=== PATIENT | female | born 1930 | race Caucasian/White ===

== ENCOUNTER 2017-09-23 13:12 | Inpatient (IN) | payer MEDICARE, OTHER ==
[~2017-09-23] VITALS: Ht 165.1 cm; Wt 44.5 kg
[~2017-09-23 13:12] MED LIST: ASPIRIN325 PO; CARDIZEM CD120 MG PO; DIGOXIN125 MCG PO; ELIQUIS2.5 MG PO; LEVOTHYROXIN0.088 MG PO
[2017-09-23 13:23] VITALS: BP 148/64
[2017-09-23 13:44] LABS: ABSOLUTE LYMPHOCYTES 1.3 thou/uL (0.8-5.3); ABSOLUTE MONOCYTES 0.4 thou/uL (0.0-1.2); ABSOLUTE NEUTROPHILS 3.7 thou/uL (1.6-8.1); BASOPHILS 0.7 %; EOSINOPHILS 0.8 %; HEMATOCRIT 29.5 % (37.0-47.0); HEMOGLOBIN 9.4 gm/dL (12.0-15.0); LYMPHOCYTES 24.4 %; MCH 24.1 pg (26.0-34.0); MCHC 31.9 g/dL (28.0-37.0); MCV 75.6 fL (80.0-100.0); MONOCYTES 7.5 %; MPV 7.8 fl. (7.2-11.1); NUCLEATED RBCS 0 /100WBC; PLATELET COUNT* 291 thou/uL (150-400); POLYS 66.6 %; RBC 3.91 mil/uL (4.20-5.00); RDW-CV 16.2 % (10.5-14.5); WBC 5.5 thou/uL (4.0-11.0)
[2017-09-23 13:58] LABS: ANION GAP 7 mmol/L (7-16); BUN 19 mg/dL (7-18); CALCIUM 9.7 mg/dL (8.5-10.1); CHLORIDE 101 mmol/L (98-107); CO2 29 mmol/L (21-32); CREATININE 0.7 mg/dL (0.6-1.3); GLUCOSE 100 mg/dL (70-99); SODIUM 137 mmol/L (136-145)
[2017-09-23 13:59] LABS: APTT 27.5 Seconds (25.0-31.3); PROTIME 10.1 Seconds (9.20-11.50)
[2017-09-23 14:27] LABS: ALBUMIN 3.9 g/dL (3.4-5.0); ALKALINE PHOSPHATASE 53 U/L (46-116); LIPASE 186 U/L (73-393); MAGNESIUM 1.7 mg/dL (1.8-2.4); NT-PRO BRAIN NAT PEPTIDE 231 pg/mL (<300); SGOT 15 U/L (15-37); SGPT 18 U/L (30-65); TOTAL BILIRUBIN 0.4 mg/dL (<0.1-1.0); TOTAL PROTEIN 6.8 g/dL (6.4-8.2); TROPONIN-I LEVEL <0.06 ng/mL (<0.06)
--- NOTE | 2017-09-23 15:00 | EKG ---
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1930 Requested By: Jose Manuel Navas Order Number: [id number] MD: Javier Bynum Measurements Intervals [place] Rate: 62 P: 269 NM: 208 QRS: -20 QRSD: 122 T: 240 QT: 404 QTc: 411 Interpretive Statements Sinus or ectopic atrial rhythm Left bundle branch block Compared to ECG 12/21/2014 07:04:21 Ectopic atrial rhythm now present Atrial fibrillation no longer present Left-axis deviation no longer present Electronically Signed On 09-23-2017 15:00:30 CDT by Javier Bynum [email or web address] <ELECTRONICALLY SIGNED> By: Javier Bynum MD, FACC 09/23/17 1500 1319 1319 Javier Bynum MD, FAC /EPI
[2017-09-23 15:22] VITALS: BP 152/55
[2017-09-23 15:30] VITALS: BP 161/71
[2017-09-23] MEDS ORDERED: METFORMIN HCL500 MG PO (15:58)
[2017-09-23] MEDS ORDERED: AMARYL2 MG PO (15:59)
--- NOTE | 2017-09-23 16:21 | NUR ---
RECIEVED REPORT FROM ANNA IN ED AND ASSUMED CARE OF PT @ 1530.PT IS A/O X4,VSS,TRACING SR ON MONITOR WITH OCCASIONAL V PACED.LUNG SOUNDS ARE CLEAR ON ROOM AIR.LAST BM WAS TODAY.IV RIGHT AC PATENT AND SALINE LOCKED.PT IS CALM AND COOPERATIVE WITH C/O HEADACHE PAIN 12/19.CALL PUT OUT TO DOCTOR FOR PAIN MEDICATIONS.PT IS UP WITH ONE ASSIST AND WALKER TO BATHROOM. PT LEFT RESTING IN BED WITH CALL LIGHT IN PLACE. WILL CONTINUE TO MONITOR FOR DURATION OF SHIFT.PT WAS TO GO TO CTA TEST BUT HAS ALLERGY TO CONTRAST.CALL PUT OUT TO DOCTOR TO SEE IF THEY WANT TO CANCEL TEST AND DO VQ SCAN INSTEAD. DOCTOR CALLED BACK AND IS GOING TO GIVE SOMETHING FOR HEADACHE AND ORDER BENADRYL AND SOLU-MEDROL FOR CONTRAST ALLERGY THEN CONTINUE CTA.
[2017-09-23 20:00] VITALS: BP 150/66
[2017-09-24] VITALS: BP 137/61
[2017-09-24 01:41] LABS: CALCIUM 9.8 mg/dL (8.5-10.1)
[2017-09-24 01:45] LABS: POTASSIUM 5.4 mmol/L (3.5-5.1)
--- NOTE | 2017-09-24 01:50 | NUR ---
ASSUMED PT CARE AT 19:15 PT IS ALERT AWAKE ORIENTED X 4. FORGETFUL AT TIMES. VITAL SIGNS WITHIN NORMAL LIMIT. SINUS RYHTM ON THE MONITOR. NO COMPLAINT OF PAIN AT THIS TIME. ASSESSMENT PERFORMED. REFER TO CHARTING. ACCUCHECK RESULT IS IN THE 300S. PT DOES NOT TAKE INSULIN. ONLY TAKES METFORMIN WHICH WAS NOT ADMINISTERED TODAY IT IS SCHEDULED. NEXT DOSE OF METFORMIN IS DUE AT 0800 INTHE AM. DECIDED TO RE EVALUATE BLODD SUGAR LEVEL AT MIDNIGHT. BLOOD SUGAR RECHECKED AT MIDNIGHT RESLUT IS 517. POTASSIUM LEVEL IS 5.4. DR ACCOUNTS PAYABLE ACCOUNTANT CONTACTED, WILL WAIT FOR CALL BACK AND PROCEES ORDERED. PT REMAINS ASYMPTOMATIC DURING THE SHIFT. IS LAYING IN BED. LIGHT DIM, ROOM QUIET, WILL CONTINUE TO MONITOR.
--- NOTE | 2017-09-24 02:53 | NUR ---
BLOOD SUGARLEVEL OF 517. RESULT COMMNUICATED TO COMPUTER PROJECT MANAGER. NEW ORDWER RECEIVED. SEE MAR. INSULIN 23 UNITS WAS ADMINSTERED ONETIME. PT IS PLACED ON A HIGH DOSE SLIDING SCALE FOR LISPRO. REFER TO MAR. POTASSIUM LEVEL OF 5.4. KAYEXYLATE ORDER RECEIVED. WILL PROCEED ORDERED.
[2017-09-24 04:00] VITALS: BP 130/69
[2017-09-24 07:08] LABS: CALCIUM 9.2 mg/dL (8.5-10.1); CREATININE 0.9 mg/dL (0.6-1.3); POTASSIUM 3.7 mmol/L (3.5-5.1)
[2017-09-24 07:13] LABS: ALBUMIN 3.5 g/dL (3.4-5.0); CHOLESTEROL 178 mg/dL (<200); HDL CHOLESTEROL 74 mg/dL (>40); LDL CHOLESTEROL 101 mg/dL (<100); MAGNESIUM 1.7 mg/dL (1.8-2.4); TC:HDL 2.4 Ratio (Not establshd); TOTAL BILIRUBIN 0.3 mg/dL (<0.1-1.0); TOTAL PROTEIN 6.5 g/dL (6.4-8.2); TRIGLYCERIDE 18 mg/dL (<150); VLDL 4 mg/dL (<40)
[2017-09-24 07:15] LABS: SERUM ASSESSMENT Clear
[2017-09-24 07:55] VITALS: BP 145/73
--- NOTE | 2017-09-24 08:22 | NUR ---
RECIEVED REPORT FROM AMAURY AND ASSUMED CARE OF PT @ 9679.PT IS A/O X4,VSS,TRACING SR ON MONITOR.LUNG SOUNDS ARE CLEAR DIMINSHED.LAST BM WAS YESTERDAY.IV RIGHT AC PATENT WITH NS RUNNING.PT IS CALM AND COOPERATIVE WITH C/O HEADACHE PAIN 5/10.PT IS UP WITH ONE ASSIST AND WALKER TO BATHROOM.PT LEFT SITTING IN CHAIR WITH CALL LIGHT AND FALL PRECAUTIONS IN PLACE.WILL CONTINUE TO MONITOR. PT WILL ALLOWED TO HAVE LIGHT BREAKFAST THEN WILL BE NPO FOR STRESS TEST LATER TODAY.WILL CONTINUE TO MONITOR.
--- NOTE | 2017-09-24 11:38 | EKG ---
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 : 1930 Requested By: Jose Manuel Navas Order Number: [id number] Yarelis MD: Melvin Carrillo Measurements Intervals [place] Rate: 82 P: 99 HI: 310 QRS: -39 QRSD: 128 T: 161 QT: 354 QTc: 414 Interpretive Statements Sinus rhythm Prolonged HI interval Left bundle branch block Compared to ECG 09/23/2017 13:19:22 no change Electronically Signed On 09-24-2017 11:37:55 CDT by Melvin Carrillo [email or web address] <ELECTRONICALLY SIGNED> By: Melvin Carrillo MD, [facility] 09/24/17 1137 1 1 Melvin Carrillo MD, [facility] /EPI
[2017-09-24 11:47] VITALS: BP 149/75
--- NOTE | 2017-09-24 12:37 | NUR ---
MET WITH PT TO DISCUSS HOME SITUATION/DC PLANNING. PT LIVES IN [place] AT THE [facility]. SHE USES ROLLER WALKER, GOES TO [employer]ALS IN DINING ROOM AND STATES IS INDEPENDENT WITH ADLS. SHE HAS SON WHO LIVES CLOSEBY WHO IS SUPPORTIVE AND ASSISTS NEEDED AND IS DPOA/RUSLAN. PT HAS HAD HH IT THE PAST BUT DOESN'T FEEL SHE NEEDS IT AT THIS TIME. SHE PLANS TO RETURN HOME AT [place]. [facility] HAS APPT WITH YU WOLFE, UNSURE OF HIS NAME. WILL FOLLOW
--- NOTE | 2017-09-24 13:31 | NUR ---
RECEIVED CONSULT FOR POSSIBLE REHAB ADMISSION. CONSULT HAS BEEN ACKNOWLEDGED BY GRAIN BROKER AND MARKET OPERATOR AND DR. EMERY. PATIENT WAS ADMITTED WITH CHEST PAIN AND FRONTAL GREEN. CARDIOLOGY AND NEUROLOGY WORK UPS AND TESTING ARE PENDING, PT/OT/ST EVALUATIONS ARE PENDING. WILL FOLLOW ALONG WITH PATIENT TO SEE HOW SHE PROGRESSES AND DX FROM WORK UPS TO DETERMINE IF PATIENT QUALIFIES FOR ACUTE REHAB. THANK YOU FOR THIS REFERRAL.
--- NOTE | 2017-09-24 14:53 | NUR ---
Nutrition: Pt seen for low BMI. Wt is recorded as 106#. Pt appears a little heavier than that - PLEASE REWEIGH FOR ACCURACY. Pt was busy with cardiac at time of visit, sitting up in chair, so did not reweigh at this time. H/o afib, pacemaker, appy. RX: insulin, glimeperide, aspirin. BG 192-208, albumin 3.5. She is NPO for testing. She is getting rehab on tele unit. Awaiting test results and diet advancement. Underweight R/T etiology unknown AEB BMI <18.5. Please reweigh pt. Please advance diet once clinically able. If meal intake is <50%, offer Ensure supplement. RD will follow up for diet advancement, po intake, need for supplement, weight, 09/26/17.
[2017-09-24 15:11] LABS: GLYCOHEMOGLOBIN (HGB A1C) 7.6 % (4.8-5.6)
[2017-09-24 15:53] VITALS: BP 129/65
--- NOTE | 2017-09-24 17:52 | NUR ---
VSS,CARDIAC MONITORING IN PLACE WITH NO CHANGES THIS SHIFT.PT REMAINS ON RA.PT PROGRESSING TOWARDS GOALS.WALKED IN HALLWAY WITH [employer]. WORKED WITH PT/OT/ST.NIH SCREEN COMPLETED.STATIN STARTED FOR ELEVATED LDL.PT HAS DENIED PAIN THROUGHOUT SHIFT.PT INFORMED OF PLAN AND COMMUNICATES UNDERSTANDING.PROBABLE DISCHARGE TOMORROW.HOURLY ROUNDING COMPLETED FOR PT SAFETY.CALL LIGHT AND FALL PRECAUTIONS IN PLACE.WILL CONTINUE TO MONITOR FOR DURATION OF SHIFT.
[2017-09-24 20:00] VITALS: BP 113/54
--- NOTE | 2017-09-24 20:10 | CARDNUC ---
[place] [address] CARDIAC NUCLEAR IMAGING REPORT Name: MATT NICHOLE Room: [address] IN [facility]#: [id number] Admission: 09/23/17 Attend Phys: Enzo Hart Discharge: Date of : 30 Date of Service: 09/24/172009 Report #: [id number] THIS REPORT FOR: //name// APPROVED REPORT Study performed: 09/23/2017 16:02:00 Exam: Nuclear Stress Test Indication: chest pain, dyspnea Patient Location: In-Patient Room #: 232 Stress Tech: Elizabeth He Stress Nurse: Tasha Balbuena RN NM Tech:SHAHEDE Casarez Ht: 5 ft 5 in Wt: 106 lbs BSA: 1.51 m2 BMI: 17.63 Medical History Medical History: a fib, pacemaker, hypertension, diabetes Medications: asa, diltiazem, digoxin Allergies: meperidine, iodine Cardiac Risk Factors: age, hypertension, diabetes Previous Cardiac Procedures: pacemaker Exercise History: Sedentary Stress Test Details Stress Test: Pharmacologic stress testing performed using 0.4 mg of regadenoson per 5 mL given IV over 10 seconds. Reason for pharmacologic stress test: physical limitation. Reversal agent Aminophyline 50 mg, given intravenously for tachycardia, st depression. HR Resting HR: 86 bpm Max Heart Rate (APMHR): 134 bpm Max HR Achieved: 112 bpm Target HR (85% APMHR): 113 bpm % of APMHR: 83 Recovery HR: 96 bpm BP Resting BP: 166/78 mmHg Max BP: 157/67 mmHg ECG Resting ECG: Sinus Rhythm, [place] [address] CARDIAC NUCLEAR IMAGING REPORT Name: MATT NICHOLE Room: [address]#: [id number] Admission: 09/23/17 Attend Phys: Enzo Hart Discharge: Date of : 30 Date of Service: 09/24/172009 Report #: [id number] Stress ECG: Sinus Rhythm, LBBB ST Change: None Arrhythmia: None Recovery ECG: Sinus Rhythm, LBBB Recovery ST Change: None Recovery Arrhythmia: None Clinical Reason for Termination: Completed protocol Exercise duration: 0 min sec Exercise capacity: 1 METs Functional Aerobic Impairment 83% The patient had no significant clinical symptoms with Lexiscan infusion. Nurse Comments aminophylline given for persistant tachycardia and s t depression Stress ECG Conclusion The baseline 12-lead elect cardiac gram showed sinus rhythm with left bundle-branch block. EKGs obtained during and post Lexiscan infusion show sinus rhythm with left bundle-branch block. There are no stress-induced arrhythmias. NM EXAM: Myocardial Perfusion REST/STRESS Imaging Protocol: Rest Tc-99m/Stress Tc-99m 1 day Resting Data Rest SPECT myocardial perfusion imaging was performed in supine position 30 minutes following the intravenous injection of 10.7 mCi of Tc-99m Sestamibi. Time of rest injection: 829 Date: 09/24/2017 The images were gated to evaluate regional wall motion and calculate left ventricular ejection fraction. Administration Route: IV Pharmacologic Stress Pharmacologic stress test was performed by injecting Regadenoson 0.4 mg IV push followed by the intravenous injection of 31.7 mCi of Tc-99m Sestamibi. Time of stress injection: 954 Time of stress imagin Administration Route: IV Gated Stress SPECT was performed 40 minutes [place] [address] CARDIAC NUCLEAR IMAGING REPORT Name: MATT NICHOLE Room: [address] IN [facility]#: [id number] Admission: 09/23/17 Attend Phys: Enzo Hart Discharge: Date of : 30 Date of Service: 09/24/172009 Report #: [id number] The images were gated to evaluate regional wall motion and calculate left ventricular ejection fraction. Stress only was performed in the Supine position. Study Quality Study: Good Artifact: No artifact Study Data At rest, the left ventricular ejection fraction was 79%.. Post stress, the left ventricular ejection was 80%.. TID = 1.04. Perfusion Myocardial perfusion images at rest and post Lexiscan stress show uniform uptake of the radioisotope throughout the myocardium. There are no defects to suggest infarct or ischemia. Wall Motion Normal left ventricular wall motion. Nuclear Conclusion ECG Findings: non-diagnostic Clinical Findings: negative for ischemia Nuclear Findings: negative for ischemia Exercise Capacity: not assessed Left Ventricular Function: normal Risk Study: low Myocardial perfusion images show no defect to suggest infarct or ischemia. Left ventricular systolic function appears normal on gated studies. This is a low risk study. <Conclusion> The baseline 12-lead elect cardiac gram showed sinus rhythm with left bundle-branch block. EKGs obtained during and post Lexiscan infusion show sinus rhythm with left bundle-branch block. There are no stress-induced arrhythmias. <ELECTRONICALLY SIGNED> By: Javier Bynum MD, FACC 09/24/172009 09 09 Javier Bynum MD, FACC /INF
[2017-09-25 00:17] VITALS: BP 130/62
[2017-09-25 04:00] VITALS: BP 153/105
--- NOTE | 2017-09-25 05:20 | NUR ---
ASSUMED PT CARE AT 19:15 REPORT RECEIVED FROM NURSE. VITAL SIGNS ARE WITHIN NORMAL LIMIT. IV LINE PATENT. IV FLUID INFUSINS AT 20CC/HR. PT LINE WAS CHAGED AT AOURND 11PM. NOW HAS A LEFT FOREARM IV LINE. VITALS SIGNS WITHIN NORMAL LIMIT. REASSESSEMT PREFORMED . REFER TO CHARTING. ACCUCHECK PERFOREMED. BLOOD GLUCOSE TREATED WITH SOME INSULIN OREDERD. SNACH PROVIDED. PT HAS POOR SLEEPING PATTERN AND REFUSED TO SLEEP WITH LIGHT . WILL CONTINUE TOP MONITOR
[2017-09-25 10:00] VITALS: BP 148/52
[2017-09-25] MEDS ORDERED: LIPITOR10 MG PO (10:25)
--- NOTE | 2017-09-25 10:45 | NUR ---
Nutrition: follow up note. Pt is discharging home today. Eating well on Heart Healthy diet, per RN. Very thin in appearance. Wt recorded as 98# today. Would encourage oral supplement at home as well, and MVI.
[2017-09-25 10:58] VITALS: BP 148/52
--- NOTE | 2017-09-25 11:08 | NUR ---
ASSUMED PT CARE AT 0700 PT IS ALERT AND ORIETNED X 4 PT IS FORGETFUL, PT IS UP WITH SBA PT IS A FALL RISK BED AND CHAIR ALARMS ARE ON, PT DOES NOT FOLLOW INSTRUCTIONS WELL, PT DOES NOT WANT SWALLOW STUDY DONE PHYSICIAN IS AWARE, PT IS AFIB, PHYSICIAN CLEARED PT FOR DISCHARGE, WILL CONTINUE TO MONITOR
--- NOTE | 2017-09-25 11:10 | NUR ---
PT HAS ORDERS FOR DC. MET WITH PT, DENIES NEEDS. HAPPY TO BE GOING HOME
--- NOTE | 2017-09-29 15:51 | 2DMMODE ---
[place] [address] 2 D/M-MODE ECHOCARDIOGRAM Name: MATT NICHOLE Room: [address] IN [facility]#: [id number] Admission: 09/23/17 Attend Phys: Enzo Hart Discharge: 09/25/17 Date of : 30 Date of Service: 09/25/17 1404 Report #: [id number] THIS REPORT FOR: //name// APPROVED REPORT Study performed: 09/25/2017 09:46:50 EXAM: Comprehensive 2D, Doppler, and color-flow Echocardiogram Patient Location: In-Patient Room #: [facility] Status: routine BSA: 1.51 HR: 69 bpm BP: 148/52 mmHg Rhythm: NSR Other Information Study Quality: Good Indications CVA/TIA Chest Pain Echo Enhancing Agent Indication: Rule out Shunt Agent(s) / Amount(s) Used: Agitated Saline 10 cc 2D Dimensions LVEF(%): 75.20 (>50%) IVSd: 13.02 (7-11mm) LVOT Diam: 18.04 (18-24mm) LVDd: 35.71 mm PWd: 10.27 (7-11mm) Ascending Ao: 30.70 (22-36mm) LVDs: 20.31 (25-40mm) Aortic Root: 28.06 mm Monge's LVEF: 75.20 % Volumes Left Atrial Volume (Systole) LA ESV Index: 30.30 mL/m2 Aortic Valve AoV Peak Willem.: 1.38 m/s AO Peak Gr.: 7.63 mmHg LVOT Max P.81 mmHg AO Mean Gr.: 4.15 mmHg LVOT Mean P.98 mmHg LVOT Max V: 0.98 m/[place] [address] 2 D/M-MODE ECHOCARDIOGRAM Name: MATT NICHOLE Room: [address]#: [id number] Admission: 09/23/17 Attend Phys: Enzo Hart Discharge: 09/25/17 Date of : 30 Date of Service: 09/25/17 1404 Report #: [id number] AO V2 VTI: 32.43 cm LVOT Mean V: 0.65 m/s LUZ MARINA (VTI): 1.70 cm2 LVOT V1 VTI: 21.51 cm Mitral Valve E/A Ratio: 1.21 MV Decel. Time: 250.70 ms MV E Max Willem.: 0.88 m/s MV PHT: 72.70 ms MVA (PHT): 3.03 cm2 TDI E/Lateral E': 11.00 E/Medial E': 14.67 Medial E' Willem.: 0.06 m/s Lateral E' Willem.: 0.08 m/s Pulmonary Valve PV Peak Willem.: 1.01 m/s PV Peak Gr.: 4.12 mmHg Tricuspid Valve TR Peak Gr.: 20.97 mmHg RVSP: 25.00 mmHg Left Ventricle The left ventricle is normal size. There is normal LV segmental wall motion. There is normal left ventricular wall thickness. Left ventricular systolic function is normal. The left ventricular ejection fraction is within the normal range. LVEF is 60-65%. The left ventricular diastolic function is normal. Right Ventricle The right ventricle is normal size. The right ventricular systolic function is normal. Atria Left atrium is mildly dilated. small right to left shunt noted suggesting a smal PFO The right atrium size is normal. Aortic Valve Mild aortic valve sclerosis. Trace aortic regurgitation. There is no aortic valvular stenosis. Mitral Valve The mitral valve is normal in structure. Trace mitral regurgitation. No evidence of mitral valve stenosis. Tricuspid Valve The tricuspid valve is normal in structure[place] [address] 2 D/M-MODE ECHOCARDIOGRAM Name: MATT NICHOLE Room: [address] IN M.R.#: [id number] Admission: 09/23/17 Attend Phys: Enzo Hart Discharge: 09/25/17 Date of : 30 Date of Service: 09/25/17 1404 Report #: [id number] regurgitation. The RVSP is ___25____ mmHg. Pulmonic Valve The pulmonary valve is normal in structure. There is no pulmonic valvular regurgitation. Great Vessels The aortic root is normal in size. IVC is normal in size and collapses with >50% inspiration Pericardium There is no pericardial effusion. <Conclusion> LVEF is 60-65%. small right to left shunt noted suggesting a smal PFO Mild aortic valve sclerosis. Left atrium is mildly dilated. <ELECTRONICALLY SIGNED> By: Melvin Carrillo MD, FACC 09/25/17 1404 1404 1404 Melvin Carrillo MD, FACC /INF
--- NOTE | 2017-09-30 13:48 | CON ---
[address] [address] CONSULTATION Name: MATT NICHOLE Room: [address] IN .R.#: [id number] Admission: 09/23/17 Attend Phys: Taylor Stewart Discharge: 09/25/17 Date of : 30 Report #: [id number] THIS REPORT FOR: //name// CC: Melvin Carrillo [facility] physician/PCP Enzo Hart DATE OF SERVICE: 09/23/2017 HISTORY OF PRESENT ILLNESS: This is an 86-year-old female patient who was admitted with chest pain. She also gave a history that she has headache. Headache is bifrontal. It started spontaneously. It started about 2 days ago. She had no trauma associated with it. It is not clear if she took much medication with it or not. She has a pacemaker. She has atrial fibrillation, but declined anticoagulation. She does not have any focal deficit. REVIEW OF SYSTEMS: Indicate that this patient had fractures in the past. She has fallen down multiple times. She has left hip problem. She does not pass out, but just fall down. She has cardiac problems. She had a CTA chest done, which shows the atherosclerotic thoracic aorta. Otherwise, she is not complaining of any new eye, ENT, respiratory, GI, , constitutional, dermatological, hematological, psychiatric, throat or allergic symptom associated with present symptomatology. She has all 14-point review of system, which was carried out and is summarized above. PAST MEDICAL HISTORY: Negative for stroke. FAMILY HISTORY: Negative for early age stroke. SOCIAL HISTORY: She does not smoke. PHYSICAL EXAMINATION: NEUROLOGIC: Indicates she is alert. She is responsive. Her speech, concentration, fund of knowledge and memory is at her baseline. Cranial nerve examination 2-12 looks unremarkable. She has symmetrical strength, sensation, reflexes and tone, but she is weak in the lower extremities. There is no meningeal sign. There is no carotid bruit. I could not look at the fundus. She has no cerebellar sign. She is moderately built individual who does not have any dysmorphic features of eyes, ears and face. Her vision and hearing looks adequate. EXTREMITIES: Pulses are somewhat difficult to feel. She has no edema, cyanosis or jaundice. HEART: Irregular, but she has a pacemaker. RESPIRATORY: No respiratory difficulty or rhonchi was noticed. VITAL SIGNS: Blood pressure is 161/71, respirations 16, pulse is 69, temperature is 97.9. [place] [address] CONSULTATION Name: MATT NICHOLE Sonu Room: [address]#: [id number] Admission: 09/23/17 Attend Phys: Taylor Stewart Discharge: 09/25/17 Date of : 30 Report #: [id number] LABORATORY DATA: She is anemic with a hemoglobin of 9.4. Her GFR is normal. She did have a CT scan of the head, which appear unremarkable. IMPRESSION: New onset of headache. I will check a sed rate to make sure she does not have temporal arteritis. Stroke is difficult to exclude because we cannot do an MRI. She has no focality and she has declined anticoagulation in the past. I will check a carotid Doppler in this patient. I will be inclined not to do a CT with contrast because she just got contrast. We will reevaluate the patient after the above workup is available. I ordered a carotid Doppler and sed rate and we will look at that and see what else we need to do about this patient. I do not think if there is any indication to do the spinal tap, but we will keep that in mind. <ELECTRONICALLY SIGNED> By: Miguelangel Porter MD 09/30/17 [phone] Porter MD /nt
== END 2017-09-25 12:54 | disposition home or self-care (01) | DRG 103 ==
LOC: M.ERS 13:12 → M.TBA-ER 14:30 → M.2W 14:30
PROVIDERS: Family Medicine; ADMIT Internal Medicine
DX: G43.909 Migraine, unspecified, not intractable, without status migrainosus (principal); K21.9 Gastro-esophageal reflux disease without esophagitis; E11.65 Type 2 diabetes mellitus with hyperglycemia; Z96.641 Presence of right artificial hip joint; I48.2 Chronic atrial fibrillation; I10 Essential (primary) hypertension; E78.5 Hyperlipidemia, unspecified; R07.89 Other chest pain; I65.23 Occlusion and stenosis of bilateral carotid arteries; Z90.49 Acquired absence of other specified parts of digestive tract; Z90.710 Acquired absence of both cervix and uterus; Z95.0 Presence of cardiac pacemaker; Z87.81 Personal history of (healed) traumatic fracture; Z88.8 Allergy status to other drugs, medicaments and biological substances; Z87.891 Personal history of nicotine dependence

== ENCOUNTER 2019-01-01 08:11 | Inpatient (IN) | payer MEDICARE, OTHER ==
[~2019-01-01] VITALS: Ht 165.1 cm; Wt 50.7 kg
[~2019-01-01 08:11] MED LIST changes: +AMARYL2 MG PO; +LIPITOR10 MG PO; +METFORMIN HCL500 MG PO
[2019-01-01 08:17] VITALS: BP 167/90
[2019-01-01] MEDS ORDERED: KLOR-CON 1010 MEQ PO (08:53)
[2019-01-01] MEDS ORDERED: LASIX 20 MG TAB20 MG PO (08:53)
[2019-01-01 08:57] LABS: ABSOLUTE EOSINOPHILS 0.1 thou/uL (0.0-0.7); ABSOLUTE LYMPHOCYTES 1.1 thou/uL (0.8-5.3); ABSOLUTE MONOCYTES 0.4 thou/uL (0.0-1.2); ABSOLUTE NEUTROPHILS 3.7 thou/uL (1.6-8.1); BASOPHILS 0.9 %; EOSINOPHILS 1.3 %; HEMATOCRIT 24.1 % (37.0-47.0); HEMOGLOBIN 7.1 gm/dL (12.0-15.0); LYMPHOCYTES 21.3 %; MCH 18.5 pg (26.0-34.0); MCHC 29.4 g/dL (28.0-37.0); MCV 63.1 fL (80.0-100.0); MONOCYTES 6.9 %; MPV 6.6 fl. (7.2-11.1); NUCLEATED RBCS 0 /100WBC; PLATELET COUNT* 355 thou/uL (150-400); POLYS 69.6 %; RBC 3.82 mil/uL (4.20-5.00); RDW-CV 19.8 % (10.5-14.5); WBC 5.4 thou/uL (4.0-11.0)
[2019-01-01 09:06] LABS: ANION GAP 9 mmol/L (7-16); BUN 21 mg/dL (7-18); CALCIUM 8.7 mg/dL (8.5-10.1); CHLORIDE 103 mmol/L (98-107); CO2 27 mmol/L (21-32); CREATININE 0.8 mg/dL (0.6-1.3); GLUCOSE 137 mg/dL (70-99); POTASSIUM 4.3 mmol/L (3.5-5.1); SODIUM 139 mmol/L (136-145)
[2019-01-01 09:07] LABS: PROTIME 10.7 Seconds (9.20-11.50)
[2019-01-01 09:22] LABS: ALBUMIN 3.6 g/dL (3.4-5.0); ALKALINE PHOSPHATASE 57 U/L (46-116); LIPASE 179 U/L (73-393); MAGNESIUM 1.4 mg/dL (1.8-2.4); NT-PRO BRAIN NAT PEPTIDE 969 pg/mL (<300); SGOT 15 U/L (15-37); SGPT 21 U/L (30-65); TOTAL BILIRUBIN 0.4 mg/dL (<0.1-1.0); TOTAL PROTEIN 6.6 g/dL (6.4-8.2); TROPONIN-I LEVEL <0.06 ng/mL (<0.06)
[2019-01-01 09:56] LABS: HYPOCHROMASIA 3+; MICROCYTES 3+
[2019-01-01 10:01] LABS: ANISOCYTOSIS 1+; TARGET CELLS 1+
[2019-01-01] MEDS ORDERED: METOPROLOL SUC100 MG PO (11:18)
--- NOTE | 2019-01-01 11:30 | NUR ---
PT UP TO ROOM VIA CART. PT REPORTS SOA. AFIB ON MONITOR. CALL LIGHT WITHIN REACH,ORIENTED TO UNIT. CAROLYN FLORES INFUSING
[2019-01-01 11:39] VITALS: BP 138/53
[2019-01-01 14:30] VITALS: BP 120/68; BP 123/70; BP 128/70; BP 138/74
[2019-01-01 15:40] VITALS: BP 130/50
--- NOTE | 2019-01-01 17:08 | NUR ---
PT TO ROOM THIS AFTERNOON. CARDIZEM GTT TITRATED OF THIS PM. BLOOD TRANSFUSION THIS AFTERNOON COMPLETE. PT TOLERATED WELL. PT TOLERATING PO WELL. UP WITH ASSIST TO BSC. AFIB RATE CONTROLLED
[2019-01-01 17:50] LABS: HEMATOCRIT 27.3 % (37.0-47.0); HEMOGLOBIN 8.2 gm/dL (12.0-15.0)
--- NOTE | 2019-01-01 18:45 | 2DMMODE ---
[place] [address] 2 D/M-MODE ECHOCARDIOGRAM Name: MATT NICHOLE Room: [address] IN [facility]#: [id number] Admission: 01/01/19 Attend Phys: Enzo Hart Discharge: Date of : 30 Date of Service: 01/01/19 1844 Report #: [id number] THIS REPORT FOR: //name// APPROVED REPORT Study performed: 01/01/2019 13:13:35 EXAM: Comprehensive 2D, Doppler, and color-flow Echocardiogram Patient Location: In-Patient Room #: [facility] Status: routine BSA: 1.56 HR: 62 bpm BP: 138/53 mmHg Rhythm: Atrial Fibrillation Other Information Study Quality: Good Indications Atrial Fibrillation 2D Dimensions IVSd: 10.20 (7-11mm) LVOT Diam: 19.41 (18-24mm) LVDd: 32.41 mm PWd: 8.72 (7-11mm) Ascending Ao: 34.21 (22-36mm) LVDs: 20.73 (25-40mm) Aortic Root: 31.22 mm Volumes Left Atrial Volume (Systole) LA ESV Index: 37.20 mL/m2 Aortic Valve AoV Peak Willem.: 1.49 m/s AO Peak Gr.: 8.91 mmHg LVOT Max P.74 mmHg AO Mean Gr.: 5.53 mmHg LVOT Mean P.60 mmHg LVOT Max V: 0.83 m/s AO V2 VTI: 28.76 cm LVOT Mean V: 0.61 m/s LUZ MARINA (VTI): 1.54 cm2 LVOT V1 VTI: 15.01 cm Mitral Valve MV Decel. Time: 154.56 ms MV PHT: 44.82 ms MVA (PHT): 4.91 [place] [address] 2 D/M-MODE ECHOCARDIOGRAM Name: MATT NICHOLE Room: [address] IN [facility]#: [id number] Admission: 01/01/19 Attend Phys: Enzo Hart Discharge: Date of : 30 Date of Service: 01/01/19 1844 Report #: [id number] TDI Medial E' Willem.: 0.08 m/s Lateral E' Willem.: 0.12 m/s Pulmonary Valve PV Peak Willem.: 1.11 m/s PV Peak Gr.: 4.95 mmHg Tricuspid Valve RAP Estimate: 5.00 mmHg TR Peak Gr.: 31.57 mmHg RVSP: 36.00 mmHg PA Pressure: 36.00 mmHg Left Ventricle The left ventricle is normal size. There is normal LV segmental wall motion. There is normal left ventricular wall thickness. Left ventricular systolic function is normal. The left ventricular ejection fraction is within the normal range. LVEF is 60-65%. This study is not technically sufficient to allow evaluation of the LV diastolic function due to atrial fibrillation. Right Ventricle Right ventricle is dilated. The right ventricular systolic function is normal. Pacemaker lead is present in the right ventricle. Atria Left atrium is mildly dilated. Right atrium is dilated. Aortic Valve Mild aortic valve sclerosis. No aortic regurgitation is present. Mild aortic stenosis. Mitral Valve The mitral valve is normal in structure. Trace mitral regurgitation. There is normal mitral valve excursion. Tricuspid Valve The tricuspid valve is normal in structure. Mild tricuspid regurgitation. Mild pulmonary hypertension. Pulmonic Valve The pulmonary valve is normal in structure. There is no pulmonic valvular regurgitation. Great Vessels The aortic root is normal in size. IVC [place] [address] 2 D/M-MODE ECHOCARDIOGRAM Name: MATT NICHOLE Room: [address] IN [facility]#: [id number] Admission: 01/01/19 Attend Phys: Enzo Hart Discharge: Date of : 30 Date of Service: 01/01/19 1844 Report #: [id number] collapses >50% with inspiration. Pericardium There is no pericardial effusion. Left pleural effusion. <Conclusion> Left ventricular systolic function is normal. The left ventricular ejection fraction is within the normal range. LVEF is 60-65%. This study is not technically sufficient to allow evaluation of the LV diastolic function due to atrial fibrillation. Right ventricle is dilated. Mild aortic valve sclerosis. Mild aortic stenosis. Trace mitral regurgitation. Mild tricuspid regurgitation. Mild pulmonary hypertension. Pacemaker lead is present in the right ventricle. Left pleural effusion. <ELECTRONICALLY SIGNED> By: Kristie Tyson MD, FACC 01/01/191843 43 43 Kristie Tyson MD, FACC /INF
--- NOTE | 2019-01-01 20:11 | EKG ---
[place] [address] ELECTROCARDIOGRAM REPORT Name: MATT NICHOLE Room: [address] ADM IN [facility]#: [id number] Admission: 01/01/19 Attend Phys: Taylor Stewart Discharge: Date of : 30 Report #: [id number] THIS REPORT FOR: //name// [facility] ED Test Date: 2019-01-01 Test Time: 08:14:41 Pat Name: MATT NICHOLE Department: Room: [facility] Gender: F Ride Assembly Supervisor: ENE : 1930 Requested By: John Gautam Order Number: [id number] MD: Nazario Tyson Measurements Intervals [place] Rate: 137 P: [place]: QRS: -39 QRSD: 119 T: 169 QT: 314 QTc: 474 Interpretive Statements Atrial fibrillation Nonspecific IVCD with LAD LVH with secondary repolarization abnormality Probable anterior infarct, age indeterminate Baseline wander in lead(s) V1 Compared to ECG 09/24/2017 05:22:57 Intraventricular conduction delay now present Left ventricular hypertrophy now present Early repolarization now present Myocardial infarct finding now present Sinus rhythm no longer present First degree AV block no longer present Left bundle-branch block no longer present Electronically Signed On 01-01-2019 20:11:32 CDT by Nazario Tyson [email or web address] <ELECTRONICALLY SIGNED> By: Kristie Tyson MD, [facility] 01/01/192010 3 3 Kristie Tyson MD, [facility] /EPI
[2019-01-01 20:44] VITALS: BP 137/56
[2019-01-01 23:48] VITALS: BP 141/63
[2019-01-02 04:00] VITALS: BP 119/57
[2019-01-02 05:02] LABS: HEMATOCRIT 27.1 % (37.0-47.0); MCH 19.9 pg (26.0-34.0); MCHC 29.5 g/dL (28.0-37.0); MCV 67.3 fL (80.0-100.0); MPV 7.6 fl. (7.2-11.1); RBC 4.03 mil/uL (4.20-5.00); RDW-CV 24.8 % (10.5-14.5); WBC 7.7 thou/uL (4.0-11.0)
[2019-01-02 05:11] LABS: ALBUMIN 3.2 g/dL (3.4-5.0); CALCIUM 8.6 mg/dL (8.5-10.1); CREATININE 0.7 mg/dL (0.6-1.3); POTASSIUM 4.1 mmol/L (3.5-5.1); TOTAL BILIRUBIN 0.7 mg/dL (<0.1-1.0)
--- NOTE | 2019-01-02 05:51 | NUR ---
PT IS ABLE TO COMMUNICATE HER NEEDS TO STAFF EFFECTIVELY. SHE HAS DENIED THE NEED FOR PAIN MEDICATION UP TO THIS TIME. HGB 8.0 THIS AM. PT FELT THAT HER BLOOD GLUCOSE LEVEL WAS LOW THIS AM; DID ACCUCHECK=73; GAVE HER 1 ORANGE JUICE TO DRINK.
[2019-01-02 08:00] VITALS: BP 135/58
[2019-01-02 11:51] VITALS: BP 138/60
[2019-01-02 16:46] VITALS: BP 143/52
--- NOTE | 2019-01-02 18:45 | NUR ---
ASSUMED PT CARE AT 0700, VSS, REMAINS ON 2LPM VIA NC PT DESATS TO 84-86% ON RA. INCLINOMETER TESTER TRACING A-PACED THAT CONVERTS TO AFIB AT TIMES, PT IS ASYMPTOMATIC. UP WITH ASSIST X1 TO BEDSIDE COMMODE, BM THIS SHIFT, FULL ASSESSMENT CHARTED. PT AND SON EDUCATED ON NEEDING CARDIAC CLEARANCE FOR EGD FRIDAY, HOURLY ROUNDING CNAD Q2 HOUR TURNS COMPLETED.
[2019-01-02 20:49] VITALS: BP 168/72
[2019-01-03] VITALS (8 sets, daily range): BP systolic 125–147; BP diastolic 49–75
--- NOTE | 2019-01-03 05:15 | NUR ---
PT IS ABLE TO COMMUNICATE HER NEEDS TO STAFF EFFECTIVELY. SHE HAS DENIED THE NEED FOR PAIN MEDICATION UP TO THIS TIME. POSSIBLE EGD WITH GI ON THURSDAY 01/04.
[2019-01-03 05:34] LABS: HEMATOCRIT 28.4 % (37.0-47.0); HEMOGLOBIN 8.5 gm/dL (12.0-15.0); MCV 66.8 fL (80.0-100.0); MPV 7.9 fl. (7.2-11.1); RBC 4.25 mil/uL (4.20-5.00); RDW-CV 25.2 % (10.5-14.5); WBC 9.1 thou/uL (4.0-11.0)
[2019-01-03 05:42] LABS: ALBUMIN 3.3 g/dL (3.4-5.0); CALCIUM 8.9 mg/dL (8.5-10.1); CREATININE 0.7 mg/dL (0.6-1.3); MAGNESIUM 1.5 mg/dL (1.8-2.4); POTASSIUM 3.9 mmol/L (3.5-5.1); TOTAL BILIRUBIN 0.7 mg/dL (<0.1-1.0); TOTAL PROTEIN 6.2 g/dL (6.4-8.2)
--- NOTE | 2019-01-03 10:15 | NUR ---
ASSUSSMED CARE OF PT APPROX 0730. ASSESSMENT COMPLETED THIS AM. NO SIGNIFICANT FINDINGS. PT COMPLAINT OF ABDOMINAL PAIN AND HEADACHE, AND FEELING WARM. VITAL SIGNS TAKEN AND BLOOD GLUCOSE. WILL CONTINUE TO MONITOR.
--- NOTE | 2019-01-03 13:31 | NUR ---
MEDICATIONS GIVEN CHARTED. PT HAS HAD IMPROVEMENT OF SYMPTOMS. PT STATES "I FEEL MUCH BETTER". PT SAYS PAIN HAS DECREASED.
--- NOTE | 2019-01-03 17:25 | NUR ---
PT UP TO BEDSIDE CAMODE WITH STAND BY ASSIST. PT ASSISTED WITH WASHING UP AND BED LINENS CHANGED. PT UP TO BEDSIDE CHAIR EATING DINNER AT THIS TIME. PT NEEDS MET.
--- NOTE | 2019-01-03 17:32 | NUR ---
PT IS CURRENTLY ON RA WITH O2 SAT AT 93%
[2019-01-04 04:00] VITALS: BP 148/66
--- NOTE | 2019-01-04 05:06 | NUR ---
ASSUMED CARE OF PT AFTER REPORT AT 1930. PT A&OX4. VSS. PHYSICAL ASSESSMENT COMPLETED AND CHARTED. PT ON RA. PT TRACING AV PACED ON TELE. PT UP WITH 1 ASSIT TO BSC. PT DENIES ANY PAIN OR SOA. PT ABLE TO SLEEP WELL ON BED. INSTRUCTED ON NPO POST MIDNIGHT FOR EGD TODAY. COMMUNICATES UNDERSTANDING. PT ABLE TO SLEEP WELL ON BED. CALL LIGHT WITHIN REACH. FALL PRECAUTIONS OBSERVED.
[2019-01-04 05:21] LABS: HEMATOCRIT 27.1 % (37.0-47.0); HEMOGLOBIN 8.2 gm/dL (12.0-15.0); MCH 20.1 pg (26.0-34.0); MCHC 30.1 g/dL (28.0-37.0); MCV 66.8 fL (80.0-100.0); MPV 8.8 fl. (7.2-11.1); RBC 4.06 mil/uL (4.20-5.00); RDW-CV 25.3 % (10.5-14.5); WBC 7.8 thou/uL (4.0-11.0)
[2019-01-04 05:33] LABS: CALCIUM 8.6 mg/dL (8.5-10.1); CREATININE 0.7 mg/dL (0.6-1.3); MAGNESIUM 1.5 mg/dL (1.8-2.4)
[2019-01-04 08:00] VITALS: BP 153/77
--- NOTE | 2019-01-04 08:00 | NUR ---
ASSUMED PT CARE AT 0700, PT A&O X4, VSS, PT UP WITH ASSIST X1 TO BEDSIDE COMMODE, TABLE ASSEMBLER TRACING AFIB. PT RE-EDUCATED ON NPO STATUS FOR EGD THIS SHIFT. WILL CONT POC.
[2019-01-04 10:45] VITALS: BP 170/94
--- NOTE | 2019-01-04 10:56 | NUR ---
PT BECAME TACHYCARDIC/HYPERTENSIVE WITH EXERTION, BP 166/100. HR INTO 150'S. PT WAS SEATED AND AFTER APPROX 5-7 MINUTES, BP WENT DOWN TO 170/94 BUT HR SUSTAINED IN THE 130'S. DR CURRY NOTIFIED, NEW ORDERS FOR ONE TIME DOSE OF CARDIZEM 5MG AND TO TAKE PO CARDIZEM AND DIGOXIN. MEDS WERE GIVEN, POST VS, 139/71, HR N THE 90'S, REMAINS AFIB, PRE OP NOTIFIED WELL, STATE PT STILL OK TO CONT WITH EGD. WILL CONT POC.
[2019-01-04 11:00] VITALS: BP 139/71
--- NOTE | 2019-01-04 12:02 | NUR ---
Pt out of room when CM went to assess, will f/u later
--- NOTE | 2019-01-04 18:25 | NUR ---
PT ARRIVED BACK TO UNIT AT APPROX 1700. PACU NURSE STATED PROCEDURE HELD D/T PTS HR ELEVATED TO 150'S WHEN LAYED ON HER LEFT SIDE. FAMILY AND DR CURRY NOTIFIED, AWAITING CONFIRMATION ON PTS PO STATUS, DINNER GIVEN TO PT SHE IS DIABETIC. WILL CONT POC.
[2019-01-04 20:00] VITALS: BP 138/58
[2019-01-05] VITALS: BP 132/57
[2019-01-05 04:00] VITALS: BP 145/70
--- NOTE | 2019-01-05 04:58 | NUR ---
ASSUMED PATIENT CARE AT 1900. PATIENT ALERT AND ORIENTED TIMES FOUR. NO COMPLAINTS OF PAIN IR DISCOMFORT NOTED. GLOBAL CHIEF CREATIVE OFFICER AND HOURLY ROUNDING COMPLETED CHARTED
[2019-01-05 08:00] VITALS: BP 141/92
--- NOTE | 2019-01-05 10:38 | NUR ---
Pt is A&O. Resides at [facility]. Normally independent. Meals and house cleaning are provider. Pt uses a RW for mobility. Hx of HH. No hx of SNF. Supportive family. Goal is home at [place], Pt wants HH. Following.
[2019-01-05] MEDS ORDERED: CHOLESTYRAMINE P4 GM PO (11:14)
[2019-01-05 12:26] VITALS: BP 164/88
[2019-01-05 16:29] VITALS: BP 135/61
--- NOTE | 2019-01-05 18:52 | NUR ---
ASSUMED PT CARE AT 0700, A&O X4, RA, COSMETOLOGY TEACHER CONT TO TRACE AFIB, EGD TO BE DONE OUT PATIENT PROCEDURE. UP WITH ASSIST X1 AND WALKER, CONT TO MONITOR HEART RATE AND RHYTHM FOR POSSIBLE DC TOMORROW, HOURLY ROUNDING COMPLETED.
[2019-01-05 20:39] VITALS: BP 127/54
[2019-01-06] VITALS: BP 132/75
[2019-01-06 04:00] VITALS: BP 126/55
[2019-01-06 04:47] LABS: HEMATOCRIT 27.6 % (37.0-47.0); HEMOGLOBIN 8.2 gm/dL (12.0-15.0); MCH 20.1 pg (26.0-34.0); MCHC 29.8 g/dL (28.0-37.0); MCV 67.5 fL (80.0-100.0); MPV 7.3 fl. (7.2-11.1); RBC 4.08 mil/uL (4.20-5.00); RDW-CV 26.4 % (10.5-14.5); WBC 7.2 thou/uL (4.0-11.0)
[2019-01-06 04:54] LABS: CALCIUM 8.6 mg/dL (8.5-10.1); CREATININE 0.6 mg/dL (0.6-1.3); MAGNESIUM 1.7 mg/dL (1.8-2.4); POTASSIUM 3.9 mmol/L (3.5-5.1)
--- NOTE | 2019-01-06 05:44 | NUR ---
PT IS ABLE TO COMMUNICATE HER NEEDS TO STAFF EFFECTIVELY. SHE HAS DENIED THE NEED FOR PAIN MEDICATION UP TO THIS TIME. POSSIBLE DISCHARGE LATER TODAY.
[2019-01-06 08:00] VITALS: BP 121/57
[2019-01-06] MEDS ORDERED: IRON325 PO (11:02)
[2019-01-06] MEDS ORDERED: CARDIZEM60 MG PO (11:04)
[2019-01-06] MEDS ORDERED: LANOXIN 0.25M0.25 M1 PO (11:04)
[2019-01-06] MEDS ORDERED: LANOXIN125 MCG PO (11:04)
[2019-01-06 12:52] VITALS: BP 121/57
[2019-01-06 12:59] VITALS: BP 123/50
[2019-01-06 13:41] VITALS: BP 123/50
--- NOTE | 2019-01-06 15:15 | NUR ---
ASSUMED PT CARE AT 0700, PT A&O X4, VSS, HOUSE CLEANER SUPERVISOR CONT TO TRACE AFIB, CONTROLLED AT THIS TIME, FULL ASSESSMENT CHARTED. PT DISCHARGED THIS SHIFT AT APPROX 1505 WITH SON AND NURSING STAFF. EDUCATED ON ALL DISCHARGE INSTRUCTIONS INCLUDING FOLLOW UP APPTS AND MEDICATIONS. IV AND HOUSE CLEANER SUPERVISOR REMOVED, HOURLY ROUNDING COMPLETED.
--- NOTE | 2019-01-07 14:07 | CON ---
[address] [address] CONSULTATION Name: MATT NICHOLE Room: [address] IN [facility].R.#: [id number] Admission: 01/01/19 Attend Phys: Taylor Stewart Discharge: 01/06/19 Date of : 30 Report #: [id number] THIS REPORT FOR: //name// CC: Melvin Carrillo [facility] physician/PCP Enzo Hart DICTATED BY: Margaux Navarro [facility] DATE OF SERVICE: 01/01/2019 The patient does not have a PCP at the current moment. Please note at the time of this dictation, the patient was seen and physically examined by myself. HISTORY OF PRESENT ILLNESS: This is an 88-year-old female who presented to the Emergency Room with increased shortness of air and having some slight abdominal discomfort when this was going on. She was noted to have atrial fibrillation with rapid RVR and she was given some diltiazem, which seemed to help control her rhythm better and she is feeling significantly better. She does see Dr. Carrillo who is her long wall mining machine helper and does have a pacemaker that was put back in 2014. The patient states she does have some abdominal discomfort mainly when she does go into atrial fibrillation, which she complains of a little bit of lower discomfort, upper discomfort, is around the epigastric area. She denies any nausea, vomiting, fever or chills. She states her bowels move daily, soft and formed. On occasion, depending on if something does not agree with her, she will have some stools. She does state with swallowing, the only time she has any difficulty is with large pills and has to take them with yogurt. On presentation to the ER, she had a hemoglobin of 7.1. She got a unit of blood. In looking back at previous hemoglobins back in 09/2017, she was 9.4, and in 2014, she was 12.3. The patient states she did have a colonoscopy probably 15 years or so ago down in [place], [place] and that was completely normal, she said. ALLERGIES: DEMEROL. MEDICATIONS: From home include Synthroid, Lanoxin, aspirin, full-dose Cardizem, Glucophage, Lasix and potassium chloride. PAST MEDICAL HISTORY: History of atrial fibrillation, hypothyroidism, insulin-dependent diabetic. PAST SURGICAL HISTORY: Tonsillectomy, appendectomy, hysterectomy, right hip replacement, left femur isabel, fractured pelvis and left elbow fracture. FAMILY HISTORY: Negative for [place] [address] CONSULTATION Name: MATT NICHOLE Sonu Room: [address]#: [id number] Admission: 01/01/19 Attend Phys: Taylor Stewart Discharge: 01/06/19 Date of : 30 Report #: [id number] SOCIAL HISTORY: She did smoke cigarettes for 20+ years. She is a former smoker. Denies any illegal drug use and no alcohol use. REVIEW OF SYSTEMS: Twelve-point review of systems is essentially negative except what is mentioned in the HPI. PHYSICAL EXAMINATION: VITAL SIGNS: Temperature 37, pulse 67, respirations 20, blood pressure 138/53. HEART: Irregular rhythm. LUNGS: Clear, but slightly diminished. ABDOMEN: Soft, positive bowel sounds in all 4 quadrants with some epigastric to kind of right upper quadrant tenderness noted to palpation and a little bit of lower quadrant tenderness noted. LABORATORY DATA: Hemoglobin is 7.1, white count is 5.4, platelets 355. PT 10.7, INR is 1, GFR is 68. Ultrasound and CT have been ordered and have been done, but imaging are pending. IMPRESSION: 1. Acute anemia. 2. Abdominal pain, epigastric and lower abdominal. 3. Atrial fibrillation with rapid ventricular response, which is improved. 4. Diabetic. PLAN: 1. Await ultrasound and CT imaging results and pending on those results. 2. Depending on the above results, we will likely need an EGD and colonoscopy to further workup her anemia since she has no overt bleeding noted at this time. 3. Further recommendations to be made once Dr. Sommers sees the patient later today. Thank you for allowing us to participate in this patient's care. Please do not hesitate to call with any questions in regard to this consult. <ELECTRONICALLY SIGNED> By: Rolando Sommers MD 01/07/19 1407 1217 [id number] Sommers MD /nt
== END 2019-01-06 15:05 | disposition home or self-care (01) | DRG 309 ==
LOC: M.ERS 08:11 → M.2W 09:15 → M.TBA-ER 09:15 → M.2W 12:09
PROVIDERS: Emergency Medicine Emergency Medical Services; Internal Medicine; ADMIT Internal Medicine
PROC: 30233N1 Transfusion of Nonautologous Red Blood Cells into Peripheral Vein, Percutaneous Approach (ICD-10-PCS; principal; 2019-01-01)
DX: I48.2 Chronic atrial fibrillation (principal); I50.22 Chronic systolic (congestive) heart failure; N17.9 Acute kidney failure, unspecified; K92.2 Gastrointestinal hemorrhage, unspecified; R10.9 Unspecified abdominal pain; D51.3 Other dietary vitamin B12 deficiency anemia; D50.9 Iron deficiency anemia, unspecified; K59.00 Constipation, unspecified; I49.5 Sick sinus syndrome; E03.9 Hypothyroidism, unspecified; E11.9 Type 2 diabetes mellitus without complications; Z96.641 Presence of right artificial hip joint; Z79.01 Long term (current) use of anticoagulants; Z90.49 Acquired absence of other specified parts of digestive tract; Z90.710 Acquired absence of both cervix and uterus; Z95.0 Presence of cardiac pacemaker; Z79.899 Other long term (current) drug therapy; Z88.8 Allergy status to other drugs, medicaments and biological substances; Z79.82 Long term (current) use of aspirin; Z87.891 Personal history of nicotine dependence; Z79.84 Long term (current) use of oral hypoglycemic drugs

== ENCOUNTER → 2019-06-22 | Outpatient (CLI) | payer MEDICARE, OTHER ==
[~2019-06-22] MED LIST changes: +CARDIZEM60 MG PO; +CHOLESTYRAMINE P4 GM PO; +IRON325 PO; +KLOR-CON 1010 MEQ PO; +LANOXIN 0.25M0.25 M1 PO; +LANOXIN125 MCG PO; +LASIX 20 MG TAB20 MG PO; +METOPROLOL SUC100 MG PO
[2019-06-22 10:46] LABS: ABSOLUTE BASOPHILS 0.1 thou/uL (0.0-0.2); ABSOLUTE EOSINOPHILS 0.1 thou/uL (0.0-0.7); ABSOLUTE LYMPHOCYTES 1.3 thou/uL (0.8-5.3); ABSOLUTE MONOCYTES 0.5 thou/uL (0.0-1.2); ABSOLUTE NEUTROPHILS 4.3 thou/uL (1.6-8.1); BASOPHILS 1.1 %; EOSINOPHILS 1.7 %; HEMATOCRIT 30.7 % (37.0-47.0); HEMOGLOBIN 9.7 gm/dL (12.0-15.0); MCH 23.1 pg (26.0-34.0); MCHC 31.5 g/dL (28.0-37.0); MCV 73.3 fL (80.0-100.0); MONOCYTES 8.6 %; MPV 7.5 fl. (7.2-11.1); NUCLEATED RBCS 0 /100WBC; PLATELET COUNT* 306 thou/uL (150-400); POLYS 68.6 %; RBC 4.19 mil/uL (4.20-5.00); RDW-CV 17.5 % (10.5-14.5); WBC 6.3 thou/uL (4.0-11.0)
[2019-06-22 11:06] LABS: ALBUMIN 3.7 g/dL (3.4-5.0); CALCIUM 8.8 mg/dL (8.5-10.1); CREATININE 0.7 mg/dL (0.6-1.3); TOTAL BILIRUBIN 0.6 mg/dL (<0.1-1.0); TOTAL PROTEIN 6.9 g/dL (6.4-8.2)
== END ==
LOC: M.LAB 10:10
PROVIDERS: Nurse Practitioner
DX: Z51.81 Encounter for therapeutic drug level monitoring (principal); J84.10 Pulmonary fibrosis, unspecified; I51.7 Cardiomegaly; D64.9 Anemia, unspecified; I10 Essential (primary) hypertension; I48.91 Unspecified atrial fibrillation; R53.83 Other fatigue; Z95.0 Presence of cardiac pacemaker; Z79.899 Other long term (current) drug therapy

== ENCOUNTER 2019-09-12 10:23 | Inpatient (IN) | payer MEDICARE, OTHER ==
[~2019-09-12] VITALS: Ht 162.6 cm; Wt 52.5 kg
[2019-09-12] MEDS ORDERED: TOPROL XL50 MG (10:27)
[2019-09-12] MEDS ORDERED: LEVO-T75 MCG PO (10:28)
[2019-09-12] MEDS ORDERED: LASIX 20 MG TAB20 MG PO (10:29)
[2019-09-12] MEDS ORDERED: KLOR-CON 10 ER10 MEQ PO (10:30)
[2019-09-12] MEDS ORDERED: HUMULIN N100 UNIT/3 ×2 (10:31)
[2019-09-12] MEDS ORDERED: HUMULIN N100 UNIT/3 SUBQ (10:33)
[2019-09-12 10:36] VITALS: BP 148/84
[2019-09-12 11:07] LABS: ABSOLUTE BASOPHILS 0.1 thou/uL (0.0-0.2); ABSOLUTE LYMPHOCYTES 1.1 thou/uL (0.8-5.3); ABSOLUTE MONOCYTES 0.4 thou/uL (0.0-1.2); ABSOLUTE NEUTROPHILS 4.1 thou/uL (1.6-8.1); BASOPHILS 0.9 %; EOSINOPHILS 0.4 %; HEMOGLOBIN 9.7 gm/dL (12.0-15.0); LYMPHOCYTES 19.8 %; MCH 22.5 pg (26.0-34.0); MCHC 31.3 g/dL (28.0-37.0); MCV 71.9 fL (80.0-100.0); MONOCYTES 7.7 %; MPV 7.5 fl. (7.2-11.1); NUCLEATED RBCS 0 /100WBC; PLATELET COUNT* 334 thou/uL (150-400); POLYS 71.2 %; RBC 4.31 mil/uL (4.20-5.00); RDW-CV 19.3 % (10.5-14.5); WBC 5.8 thou/uL (4.0-11.0)
--- NOTE | 2019-09-12 11:07 | NUR ---
PT HAD COVID 19 TEST 1 WEEK AGO BUT TESTED NEGATIVE.
[2019-09-12 11:10] LABS: CALCIUM 8.6 mg/dL (8.5-10.1); CREATININE 0.9 mg/dL (0.6-1.3); POTASSIUM 3.8 mmol/L (3.5-5.1)
[2019-09-12 11:14] LABS: ALBUMIN 3.5 g/dL (3.4-5.0); TOTAL BILIRUBIN 0.6 mg/dL (<0.1-1.0); TOTAL PROTEIN 6.6 g/dL (6.4-8.2)
[2019-09-12 11:40] LABS: OVALOCYTES Occasional; PLATELET ESTIMATE ADEQUATE
[2019-09-12 11:41] LABS: ANISOCYTOSIS 1+; HYPOCHROMASIA 2+; MICROCYTES 2+; TEARDROPS Occasional
[2019-09-12 13:51] LABS: URINE BILIRUBIN NEGATIVE (Negative); URINE BLOOD NEGATIVE (Negative); URINE CLARITY CLEAR; URINE COLOR YELLOW; URINE GLUCOSE-RANDOM NEGATIVE (Negative); URINE KETONES 1+ (Negative); URINE LEUKOCYTES-REFLEX NEGATIVE (Negative); URINE NITRITE-REFLEX NEGATIVE (Negative); URINE PROTEIN NEGATIVE (Negative); URINE UROBILINOGEN 0.2 E.U./dl (0.2-1.0)
[2019-09-12 15:27] VITALS: BP 156/89
[2019-09-12 16:00] VITALS: BP 135/65
--- NOTE | 2019-09-12 17:51 | NUR ---
PT ARRIVED ON UNIT AROUND 1545, VSS, A&OX4, 2+ PITTING EDEMA BLE, AFIB ON TELE WITH PACER, ROOM AIR, ADMISSION COMPLETED AND ORIENTED TO ROOM, PT UP WITH ONE AND WALKER- USES BEDSIDE COMMODE WITH URGENCY, HOURLY ROUNDING PERFORMED, POSSESSIONS AND CALL LIGHT WITHIN REACH.
[2019-09-12 20:00] VITALS: BP 115/49
[2019-09-13 00:32] VITALS: BP 139/69
[2019-09-13 04:09] VITALS: BP 138/64
[2019-09-13 04:36] LABS: CALCIUM 8.6 mg/dL (8.5-10.1); CREATININE 0.9 mg/dL (0.6-1.3); MAGNESIUM 1.5 mg/dL (1.8-2.4); POTASSIUM 4.7 mmol/L (3.5-5.1)
--- NOTE | 2019-09-13 05:27 | NUR ---
ASSUMED PT CARE AT APPROX 1930. PT IS AWAKE AND ORIENTED X4. PT IS TRACING AFIB, OCCASIONALLY V/AV PACED ON THE FRONT END WEB DESIGNER. ASSESSMENT DONE AND CHARTED. NO ACUTE CHANGES OVERNIGHT. CALL LIGHT WITHIN REACH. HOURLY ROUNDING DONE FOR PT SAFETY. POSITION CHANGES DONE Q2H. HIGH FALL PRECAUTIONS IN PLACE.
[2019-09-13 08:00] VITALS: BP 143/60
--- NOTE | 2019-09-13 10:37 | EKG ---
[place] [address] ELECTROCARDIOGRAM REPORT Name: DIONISIOMATT Room: [address] ADM IN [facility]#: [id number] Admission: 09/12/19 Attend Phys: Keon Armendariz, Discharge: Date of : 30 Date of Service: 09/12/19 1224 Report #: [id number] THIS REPORT FOR: //name// [facility] ED Test Date: 2019-09-12 Test Time: 12:24:45 Pat Name: MATT NICHOLE Department: Room: [facility] Gender: F Consultant Nurse: : 1930 Requested By: John Gautam Order Number: [id number] MD: Melvin Carrillo Measurements Intervals [place] Rate: 98 P: TN: QRS: -57 QRSD: 118 T: 150 QT: 364 QTc: 465 Interpretive Statements Atrial fibrillation with ventricular paced beats LBBB Compared to ECG 01/01/2019 08:14:41 ventricular paced beats noted Electronically Signed On 09-13-2019 10:36:04 CDT by Melvin Carrillo [email or web address] <ELECTRONICALLY SIGNED> By: Melvin Carrillo MD, [facility] 09/13/19 1036 1224 1224 Melvin Carrillo MD, [facility] /EPI
--- NOTE | 2019-09-13 10:39 | EKG ---
[place] [address] ELECTROCARDIOGRAM REPORT Name: DIONISIOMATT Nunes Room: [address] ADM IN [facility]#: [id number] Admission: 09/12/19 Attend Phys: Keon Armendariz, Discharge: Date of : 30 Date of Service: 09/12/19 1328 Report #: [id number] THIS REPORT FOR: //name// [facility] ED Test Date: 2019-09-12 Test Time: 13:28:10 Pat Name: MATT NICHOLE Department: Room: [facility] Gender: F Occupational Health Coordinator: DIONNE : 1930 Requested By: John Gautam Order Number: [id number] MD: Melvin Carrillo Measurements Intervals [place] Rate: 147 P: 0 HI: 68 QRS: -63 QRSD: 115 T: 174 QT: 312 QTc: 488 Interpretive Statements Supraventricular tachycardia LBBB artifact noted Compared to ECG 01/01/2019 08:14:41 Paroxysmal supraventricular tachycardia noted present Electronically Signed On 09-13-2019 10:37:18 CDT by Melvin Carrillo [email or web address] <ELECTRONICALLY SIGNED> By: Melvin Carrillo MD, [facility] 09/13/19 1037 1328 1328 Melvin Carrillo MD, [facility] /EPI
[2019-09-13 11:58] VITALS: BP 129/55
--- NOTE | 2019-09-13 16:43 | NUR ---
Pt lives at [facility]. Pt has RW and history of [facility]. SW/CM to continue to follow to assist with safe dc planning pending dc recommendations.
[2019-09-13 16:47] VITALS: BP 142/55
--- NOTE | 2019-09-13 18:08 | NUR ---
PT. AOX4, FORGETFUL, VSS, AFIB VPACED ON MONITOR. PAIN ON EXERTION, CONTROLLED WITH MEDICATION AND REST. HOURLY ROUNDING PERFORMED. CALL LIGHT AND PATIENT BELONGINGS PLACED WITHIN REACH. PT. IN BED AND WATCHING TV AT THIS TIME, DENIES PAIN.
[2019-09-13 20:00] VITALS: BP 176/80
[2019-09-14 00:31] VITALS: BP 145/71
[2019-09-14 04:00] VITALS: BP 158/84
--- NOTE | 2019-09-14 05:49 | NUR ---
ASSESSMENTS COMPLETED AT BEDSIDE, PLEASE REFER TO CHARTING FOR DETAILS. MEDICATIONS ADMINISTERED PER MAR. PT HAS C/O PAIN TO RIGHT KNEE, TREATED WITH PRN MEDICATION AND REMOVED HEMANT WRAP FROM KNEE IT WAS CAUSING SWELLING AND INDENTIONS IN THE SKIN, ELEVATED ON PILLOWS. HOURLY ROUNDING COMPLETED FOR SAFETY, BED ALARM ON AND CALL LIGHT WITHIN REACH.
[2019-09-14 07:30] VITALS: BP 163/89
[2019-09-14 12:07] VITALS: BP 115/56
[2019-09-14 16:18] VITALS: BP 145/77
--- NOTE | 2019-09-14 16:18 | NUR ---
PATIENT A HEAVY ASSIST UP TO CHAIR AND BSC. WALKER AND GAIT BELT UTILIZED. PRN TRAMADOL GIVEN X 2 FOR RIGHT KNEE PAIN. HEATING PAD ORDERED AND IN PLACE TO RIGHT KNEE. GOOD APPETITE. IV REMAINS SL, FLUSHING WITHOUT DIFFICULTY. NEUROSCIENCE DIRECTOR NA CONTINUES TRACING AFIBB VPACED.
--- NOTE | 2019-09-14 16:24 | NUR ---
ASKED [facility]/REHAB LIASON TO LOOK AT PT.TO SEE IF SHE WOULD BE A GOOD REHAB CANDIDATE. NO OFFICIAL CONSULT YET. PT.LIVES ALONE [facility] [address] AND WOULD NEED TO BE ABLE TO AMBULATE TO DINING ROOM AND CARE FOR HERSELF.
[2019-09-14 20:00] VITALS: BP 175/72
[2019-09-15 00:08] VITALS: BP 173/104
[2019-09-15 04:21] VITALS: BP 142/64
--- NOTE | 2019-09-15 05:58 | NUR ---
PT HAD C/O SOA, SATS WNL LUNGS CLR UPPER DIM LOWER. SAT UP AT BEDSIDE STATED SHE FELT SHE NEEDED TO BURP. PT ALSO HAD C/O SEVERE HEADACHE. SPOKE WITH PHYSICIAN, OBTAINED EKG AND TROP, AND NEW ORDERS. PT HAD INCREASE IN BP, SPOKE WITH PHYSICIAN OBTAINED NEW ORDERS, ADMINISTERED PRN BLOOD PRESSURE MEDICATIONS. PT HAD C/O N/V TREATED WITH PRN MEDICATIONS. PT IS CURRENTLY ASLEEP IN BED WITH BED ALARM ON AND CALL LIGHT WITHIN REACH.
[2019-09-15 07:25] VITALS: BP 132/49
--- NOTE | 2019-09-15 08:32 | EKG ---
[place] [address] ELECTROCARDIOGRAM REPORT Name: MATT NICHOLE Room: [address] ADM IN [facility]#: [id number] Admission: 09/12/19 Attend Phys: Keon Armendariz, Discharge: Date of : 30 Date of Service: 09/14/192053 Report #: [id number] THIS REPORT FOR: //name// [facility] Test Date: 2019-09-14 Test Time: 20:54:37 Pat Name: MATT NICHOLE Department: Room: [address] Gender: F [employer]: TR : 1930 Requested By: Berto Macario Order Number: [id number] Yarelis MD: Javier Bynum Measurements Intervals [place] Rate: 94 P: [place]: QRS: -49 QRSD: 124 T: 154 QT: 384 QTc: 481 Interpretive Statements Atrial fibrillation Left bundle branch block Baseline wander in lead(s) V6 Compared to ECG 09/12/2019 13:28:10 Supraventricular tachycardia no longer present Electronically Signed On 09-15-2019 8:30:10 CDT by Javier Bynum [email or web address] <ELECTRONICALLY SIGNED> By: Javier Bynum MD, [facility] 09/15/19829 53 53 Javier Bynum MD, [facility] /EPI
[2019-09-15 12:11] VITALS: BP 123/49
[2019-09-15 16:24] VITALS: BP 106/51
--- NOTE | 2019-09-15 16:30 | NUR ---
PATIENT UP TO CHAIR WITH MAX ASSISTANCE. PATIENT UP WITH A WALKER AND GAIT BELT. VOIDING PER BSC. PATIENT GIVEN MOM THIS AM FOR CONSTIPATION, PATIENT DID COMPLAIN OF CRAMPING AND FLATUS BUT NO BM AT THIS TIME. IV REMAINS SL. MG REPLACED OVERNIGHT AND WNL'S THIS AM. PATIENT REFUSING PRN TRAMADOL FOR RIGHT KNEE PAIN, HEATING PAD IN PLACE TO RIGHT KNEE. REHAB CONSULT PLACED FOR DISCHARGE.
[2019-09-15 20:15] VITALS: BP 138/52
[2019-09-16] VITALS: BP 130/53
[2019-09-16 04:00] VITALS: BP 165/76
--- NOTE | 2019-09-16 06:32 | NUR ---
Alert and oriented x4 but forgetful. She is max assist x 2 to the bedside commode. She has been saying that her rt knee is in so much pain. This am she did have a tramadol for pain and is sleeping now. Vitals arestable and heart monitor is sinus rhythym.
[2019-09-16 07:45] VITALS: BP 129/69
[2019-09-16 12:39] VITALS: BP 132/70
--- NOTE | 2019-09-16 15:49 | NUR ---
ASSUMED CARE OF PT AROUND 0730 THIS AM. REFER TO ASSESSMENT. PT CONTINUES TO HAVE PAIN TO RT KNEE. REQUIRING ASSIST X2 TO BSC D/T KNEE PAIN. CT KNEE NEGATIVE FOR ANY ACUTE CHANGES. NEW ORDER FOR TOPICAL OINTMENT TO RT KNEE STARTED THIS SHIFT AND RT KNEE WRAPPED WITH HEMANT BANDAGE. PT'S SON REQUESTED AN ORTHO CONSULT FOR POSSIBLE STEROID INJECTION. STATES THEY WERE DOING INJECTIONS OUTPATIENT BUT UNABLE TO FOLLOW UP D/T COVID PANDEMIC. ANTICIPATE SNF PLACEMENT IN THE NEXT COUPLE OF DAYS. NO OTHER CONCERNS AT THIS TIME. CLWR. WCTM.
[2019-09-16 16:17] VITALS: BP 140/66
[2019-09-16 19:50] VITALS: BP 153/72
[2019-09-17] VITALS: BP 137/68
[2019-09-17 04:00] VITALS: BP 132/63
--- NOTE | 2019-09-17 06:55 | NUR ---
ASSESSMENT COMPLETED CHARTED.
[2019-09-17 08:00] VITALS: BP 134/69
[2019-09-17 12:03] VITALS: BP 135/64
--- NOTE | 2019-09-17 13:03 | NUR ---
Pt was denied inpt rehab and recommended for SNF. SW called pt who said that SW could speak with pt son about placement and requested facility in [place]. SW spoke with pt son who agreed with looking into SNFs in [place]. SW faxed referral to [facility]. [facility] reviewed and stated that they would request COVID testing due to fact that pt lives at [place]. SW to inform nursing and [facility]. SW to follow up with option of [facility] and continue to follow to assist with safe dc planning; pt possibly ready for SNF today or as soon as placement acceptance.
--- NOTE | 2019-09-17 16:18 | NUR ---
ASSUMED PT CARE REPORT RECEIVED FROM NURSE PT IS AOX4 ON RA. O2 SATURATION IS 95%. ON RA. VSS. ACCUCHECK. COMPLAINS OF PAIN LEVEL 8 IN RIGHT KNEE. TRAMADOL GIVEN AND RIGHT KNEE ELEVATED ON PILLOW. DICLOFENAC ALSO APPLIED ON RIGHT KNEE ORDERED. PT MOVED OUT OF BED TO THE CHAIR WITH ASSISTANCE. PT HAS GOOD APPETITE. PT DENIES PAIN AT TIME OF RE-ASSESSMENT THIS AM. PT WORKED WITH PHYSICAL THERAPIST AND DID WELL. INDUSTRIAL SALES MANAGER CONSULTED AND IS WORKING ON DISCHARGE PLAN. TRACING AFIB ON HOSPITAL SALES REPRESENTATIVE. CALL LIGHT AT REACH. WILL CONTINUE TO MONITOR
[2019-09-17 17:08] VITALS: BP 144/59
[2019-09-17 19:40] VITALS: BP 124/50
[2019-09-18] VITALS: BP 136/71
[2019-09-18 04:00] VITALS: BP 136/73
[2019-09-18 07:54] VITALS: BP 159/65
[2019-09-18 12:00] VITALS: BP 147/57
--- NOTE | 2019-09-18 14:05 | NUR ---
ASSUMED PT CARE REPORT RECEIVED FROM NURSE PT IS AOX4. FORGETFUL.ON RA. TRACING AFIB ON CIGAR MACHINE FEEDER. VSS. ACCUCHECK. UP TO CHAIR. MOVEMENT ENCOURAGED. UP TO BEDSIDE COMMODE WITH WALKER AND STAND BY ASSIST. COMPLAINS OF PAIN IN RIGHT KNEE. DICLOFENAC APPLIED. NO NEED FOR PAIN MEDICINE PER PATIENT. HEART RATE CONTROLLED. CALL LIGHT WITHIN REACH. WILL CONTINUE TO MONITOR PATIENT
[2019-09-18 16:00] VITALS: BP 158/77
[2019-09-18 20:00] VITALS: BP 146/63
[2019-09-19] VITALS: BP 169/76
[2019-09-19 04:00] VITALS: BP 156/64
--- NOTE | 2019-09-19 04:05 | NUR ---
ASSUMED PATIENT CARE AT 1900. ASSESSMENT COMPLETED CHARTED. PATIENT IS AFIB ON THE MONITOR AND IS V-PACED. FALL PRECAUTIONS IN PLACE FOR PATIENT SAFETY. HOURLY ROUNDING IN PLACE FOR PATIENT SAFETY. CLWR.
[2019-09-19 08:00] VITALS: BP 145/68
[2019-09-19 12:00] VITALS: BP 127/65
[2019-09-19 17:07] VITALS: BP 137/70
--- NOTE | 2019-09-19 18:21 | NUR ---
ASSUMED PT CARE REPORT RECEIVED FROM NURSE. PT IS AOX4 ON RA. VSS. TRACING V PACED/AFIB ON TIPPLE BOSS. ACCUCHECK. OUT OF BED TO CHAIR WITH ASSISTANCE. HAD A BOWEL MOVEMENT TODAY. DENIES PAIN. CALL LIGHT WITHIN REACH. WILL CONTINUE TO MONITOR PT/
[2019-09-19 20:26] VITALS: BP 142/63
[2019-09-20] VITALS: BP 163/84
[2019-09-20 04:00] VITALS: BP 166/71
--- NOTE | 2019-09-20 05:50 | NUR ---
PT IS ABLE TO COMMUNICATE HER NEEDS TO STAFF EFFECTIVELY. CURRENT PAIN MEDICATION REGIMEN HAS BEEN ADEQUATE FOR CONTROLLING HER PAIN UP TO THIS TIME. CODE STATUS IS DNR.
[2019-09-20 08:00] VITALS: BP 169/80
[2019-09-20] MEDS ORDERED: ELIQUIS5 MG PO (09:00)
[2019-09-20] MEDS ORDERED: TRAMADOL 50 MG50 MG PO (09:00)
[2019-09-20] MEDS ORDERED: ASA81BEC PO (09:00)
[2019-09-20] MEDS ORDERED: VOLTAREN GEL 1100 G1 TOP (09:00)
--- NOTE | 2019-09-20 09:24 | NUR ---
CM INFORMED THAT PREVIOUS CM SPOKE TO PT TO ARRANGE D/C TO SKILLED FOR D/C OVER THE WEEKEND. PT REMAINS INPATIENT AT THIS TIME. DANILO SPOKE TO PHYSICIAN IN-CHAGRE OF PT TODAY AND HE INFORMS THAT D/C ORDERS HAVE BEEN WRITTEN PENDING PHYSICAL THERAPY PT REQUEST TO RETURN TO ASSISTED LIVING. D/C CENTER CUSTOMER SERVICE ASSOCIATE SPOKE TO THE RN IN-CHARGE OF PT AND SHE INFORMS THAT PT ENDORSED FELLING BETTER HOWEVER, BUT MAY STILL NEED SNF AT D/C. RN ALSO INFORMS THAT THE PT D/C IS ALSO PENDING COVID-19 RESULTS, WHICH SHOULD BE RETURNED TODAY. CM SENT A MESSAGE TO PT TO INFORM OF NEED TO WORK WITH PT EARLY IF POSSIBLE TO ASSESS PT'S ABILTY TO RETURN TO [facility] OR D/C TO SNF. CM WILL REMAIN AVAILABLE TO ASSIT AND FOLLOW NEEDED.
--- NOTE | 2019-09-20 10:06 | NUR ---
WOUND NURSE: PATIENT SEEN TO ADDRESS HEALING STAGE 2 PRESSURE INJURY ON THE RIGHT SACRUM. PRESENTS A CIRCIFORM LESION MEASURING 0.5 X 0.5 X 0.1 CM, NO ACTIVE DRANAGE, PINK NONGRANULATING TISSUE IN THE WOUND BED, THIN FRIABLE EPITHELIAL TISSUE AT THE WOUND EDGES. PATIENT INSTRUCTED ON Q 2 HR REPOSITIONING AND LIMITING AMOUNT OF SITTING TO PROMOTE HEALING. ALSO INSTRUCTED ON NUTRIENT DENSE DIET WITH ADDED PROTEIN. PATIENT STATES SHE UNDERSTANDS.
[2019-09-20 12:18] VITALS: BP 116/61
[2019-09-20 12:57] VITALS: BP 116/61
--- NOTE | 2019-09-20 12:59 | NUR ---
ASSUMED PT CARE REPORT RECEIVED FROM NURSE PT IS AOX4. ON RA. VSS. TRACING AFIB ON HEART MONITOR. COMPLAINS OF PAIN IN R KNEE. DICLOFENAC CREAM APPLIED. OT/PT WORKED WITH PATIENT. PHYSICAL THERAPIST RECOMMENDED SNIF FOR PATIENT AT DISCHARGE. THIS WAS COMMUNICATED TO DYED RAW STOCK BLOWER FEEDER PLANNING DISCHARGE FOR THIS PT. DISCHARGE ORDERED. IV LINE REMOVED. HEART MONITOR RETRIEVED. PER DYED RAW STOCK BLOWER FEEDER PT IS GOING TO [facility]. PLANNED CULTURIST TIME IS 1430
[2019-09-20 14:23] VITALS: BP 116/61
--- NOTE | 2019-09-20 14:25 | NUR ---
PT LEFT UNIT AT 1415. SON NOTIFIED OF DISCHARGE. REPORT GIVEN TO NURSE MCGOVERN FROM [place].
== END 2019-09-20 14:15 | DRG 300 ==
LOC: M.ERS 10:23 → M.2W 13:16 → M.TBA-ER 13:16 → M.2W 15:08
PROVIDERS: Emergency Medicine Emergency Medical Services; ADMIT Internal Medicine
DX: I80.01 Phlebitis and thrombophlebitis of superficial vessels of right lower extremity (principal); D68.69 Other thrombophilia; I48.20 Chronic atrial fibrillation, unspecified; I50.32 Chronic diastolic (congestive) heart failure; M16.11 Unilateral primary osteoarthritis, right hip; M17.11 Unilateral primary osteoarthritis, right knee; E11.65 Type 2 diabetes mellitus with hyperglycemia; I11.0 Hypertensive heart disease with heart failure; Z96.641 Presence of right artificial hip joint; Z20.828 Contact with and (suspected) exposure to other viral communicable diseases; Z90.49 Acquired absence of other specified parts of digestive tract; Z90.710 Acquired absence of both cervix and uterus; Z95.0 Presence of cardiac pacemaker; Z79.84 Long term (current) use of oral hypoglycemic drugs; Z79.82 Long term (current) use of aspirin; Z79.899 Other long term (current) drug therapy; Z88.8 Allergy status to other drugs, medicaments and biological substances; Z91.048 Other nonmedicinal substance allergy status; Z87.891 Personal history of nicotine dependence

== ENCOUNTER 2020-11-08 15:41 | Inpatient (IN) | payer MEDICARE, OTHER ==
[~2020-11-08] VITALS: Ht 165.1 cm; Wt 53.5 kg
--- NOTE | ~2020-11-08 | CON ---
[address] [address] CONSULTATION Name: MATT NICHOLE Room: [address] IN .R.#: [id number] Admission: 11/08/20 Attend Phys: Taylor Stewart Discharge: Date of : 30 Report #: [id number] THIS REPORT FOR: cc: FAM - No family physician/PCP FAM - No family physician/PCP Miguelangel Higgins MD ~ DOC #: [id number] Miguelangel Higgins MD DATE OF CONSULTATION: 11/09/2020 HISTORY OF PRESENT ILLNESS: An 89-year-old female patient who was seen by me for somewhat unstructured symptom. She tells me that she had a prior DVT. She came to Emergency Room because she was having some pain in the right leg. She thought she may have a blood clot again, but her Doppler was normal. She did have some swelling in both lower extremities, which is better. She had some headache and dizziness, which is also better. She said they gave her diuretics that caused all her symptoms. REVIEW OF SYSTEMS: Positive for DVT in the past. She had some dizziness, which is better. She had some headache, which is better. She has a high blood sugar. She is on metformin. She has a history of atrial fibrillation and she is on anticoagulation. She has anemia in the past. Fourteen-point review of system was otherwise unremarkable. PAST MEDICAL HISTORY: Negative for any headache. FAMILY HISTORY: Negative for any early age stroke. SOCIAL HISTORY: She does not drink alcohol. She has a pacemaker. PHYSICAL EXAMINATION: NEUROLOGIC: She is alert, responsive, able to follow simple and complex command. Cranial nerve examinations appear unremarkable except I could not look at the patient's fundus. The strength is symmetrical. Position sense is present on both sides. Reflexes are diminished. There is no cerebellar sign. There is no meningeal sign. CARDIAC: She has a history of atrial fibrillation. LUNGS: No respiratory difficulty was noticed. VITAL SIGNS: Blood pressure is 126/77, respirations 16, pulse 60, temperature is 97.7. IMAGING DATA: She did have a CT scan of the head, which was unremarkable. IMPRESSION: I think this patient needs further neurological workup. I recommended to the patient that we do a CT angio of [place] [address] CONSULTATION Name: MATT NICHOLE Room: [address] IN [facility]#: [id number] Admission: 11/08/20 Attend Phys: Taylor Stewart Discharge: Date of : 30 Report #: [id number] will give us a fairly good picture of the blood vessels as well as venous sinuses. She is diabetic. 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 The patient declined any further testing. I talked to her about the reason I am doing these testing and recommending to her, but she refused those testing. She thinks she wants to stop her diuretics and does not want any further testing done. If she changes her mind, please let us know. Dr. Archer is investor relations manager from tomorrow and please give her a call and she will be happy to follow up and arrange further testing starting with CT angiogram and maybe sed rate, but presently she is very clear and pretty adamant that she will not have any further testing done. Thank you very much for this referral. MD IVELISSE Marino/AZEEM/PILY By: 1420 [id number] Higgins MD /nt
[~2020-11-08 15:41] MED LIST changes: +ASA81BEC PO; +ELIQUIS5 MG PO; +HUMULIN N100 UNIT/3; +HUMULIN N100 UNIT/3 SUBQ; +KLOR-CON 10 ER10 MEQ PO; +LEVO-T75 MCG PO; +TOPROL XL50 MG; +TRAMADOL 50 MG50 MG PO; +VOLTAREN GEL 1100 G1 TOP
[2020-11-08 15:43] VITALS: BP 170/63
[2020-11-08 16:07] LABS: ABSOLUTE BASOPHILS 0.1 thou/uL (0.0-0.2); ABSOLUTE EOSINOPHILS 0.1 thou/uL (0.0-0.7); ABSOLUTE LYMPHOCYTES 1.6 thou/uL (0.8-5.3); ABSOLUTE MONOCYTES 0.5 thou/uL (0.0-1.2); BASOPHILS 1.2 %; EOSINOPHILS 1.4 %; HEMOGLOBIN 9.6 gm/dL (12.0-15.0); LYMPHOCYTES 25.2 %; MCH 21.8 pg (26.0-34.0); MCHC 30.9 g/dL (28.0-37.0); MCV 70.4 fL (80.0-100.0); MONOCYTES 7.8 %; MPV 7.7 fl. (7.2-11.1); NUCLEATED RBCS 0 /100WBC; PLATELET COUNT* 366 thou/uL (150-400); POLYS 64.4 %; RBC 4.41 mil/uL (4.20-5.00); RDW-CV 18.5 % (10.5-14.5); WBC 6.2 thou/uL (4.0-11.0)
[2020-11-08 16:17] LABS: CALCIUM 9.1 mg/dL (8.5-10.1); CREATININE 0.9 mg/dL (0.6-1.3); POTASSIUM 3.8 mmol/L (3.5-5.1)
[2020-11-08 16:31] LABS: ALBUMIN 3.7 g/dL (3.4-5.0); CK-MB MASS 3.3 ng/mL (<0.5-3.6); TOTAL BILIRUBIN 0.5 mg/dL (<0.1-1.0); TOTAL PROTEIN 7.2 g/dL (6.4-8.2)
[2020-11-08 16:32] LABS: ANISOCYTOSIS 1+; PLATELET ESTIMATE ADEQUATE
--- NOTE | 2020-11-08 17:22 | NUR ---
CALLED SON RUSLAN AND GAVE UP DATE OF CARE.
[2020-11-08 17:37] LABS: URINE BILIRUBIN NEGATIVE (Negative); URINE BLOOD NEGATIVE (Negative); URINE CLARITY CLEAR; URINE COLOR YELLOW; URINE GLUCOSE-RANDOM NEGATIVE (Negative); URINE KETONES NEGATIVE (Negative); URINE LEUKOCYTES-REFLEX NEGATIVE (Negative); URINE NITRITE-REFLEX NEGATIVE (Negative); URINE PROTEIN 1+ (Negative); URINE UROBILINOGEN 0.2 E.U./dl (0.2-1.0)
[2020-11-08 18:40] VITALS: BP 150/63
--- NOTE | 2020-11-08 19:10 | NUR ---
RECEIVED REPORT FROM AUBREY NAJERA. PT ARRIVED ON UNIT AROUND 1900. PT ORIENTED TO ROOM. CALL LIGHT WITH IN REACH.
[2020-11-08] MEDS ORDERED: ELIQUIS2.5 MG PO (20:22)
[2020-11-08 20:59] VITALS: BP 140/51
[2020-11-09] VITALS: BP 112/59
[2020-11-09 04:20] VITALS: BP 120/55
[2020-11-09 04:21] LABS: ABSOLUTE EOSINOPHILS 0.1 thou/uL (0.0-0.7); ABSOLUTE LYMPHOCYTES 1.8 thou/uL (0.8-5.3); ABSOLUTE MONOCYTES 0.5 thou/uL (0.0-1.2); ABSOLUTE NEUTROPHILS 3.4 thou/uL (1.6-8.1); BASOPHILS 0.8 %; HEMATOCRIT 27.3 % (37.0-47.0); HEMOGLOBIN 8.6 gm/dL (12.0-15.0); LYMPHOCYTES 31.2 %; MCH 22.1 pg (26.0-34.0); MCHC 31.4 g/dL (28.0-37.0); MCV 70.3 fL (80.0-100.0); MPV 7.8 fl. (7.2-11.1); NUCLEATED RBCS 0 /100WBC; PLATELET COUNT* 316 thou/uL (150-400); RBC 3.89 mil/uL (4.20-5.00); RDW-CV 18.2 % (10.5-14.5); WBC 5.9 thou/uL (4.0-11.0)
[2020-11-09 04:23] LABS: CALCIUM 8.8 mg/dL (8.5-10.1); CREATININE 0.6 mg/dL (0.6-1.3); POTASSIUM 3.1 mmol/L (3.5-5.1)
--- NOTE | 2020-11-09 05:45 | NUR ---
PT ADMITTED TO ROOM 210 DURING THIS SHIFT; VSS, A+OX4, ROOM AIR, UP WITH SBA. SHE IS ABLE TO COMMUNICATE HER NEEDS TO STAFF WITH MINOR DIFFICULTY; SHE IS UCLE-RL-GCSWROK, BUT DOES WEAR HEARING AIDS DURING HER WAKING HOURS. SHE HAS DENIED THE NEED FOR PAIN MEDICATION UP TO THIS TIME.
[2020-11-09 06:05] LABS: ANISOCYTOSIS 1+; HYPOCHROMASIA 2+; MICROCYTES 2+
[2020-11-09 06:06] LABS: OVALOCYTES Occasional; SCHISTOCYTES Occasional
[2020-11-09 06:07] LABS: POIKILOCYTOSIS 1+; TARGET CELLS Occasional
[2020-11-09 08:00] VITALS: BP 160/54
--- NOTE | 2020-11-09 11:01 | EKG ---
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 : 1930 Requested By: Jose Manuel Navas Order Number: [id number] MD: Melvin Carrillo Measurements Intervals [place] Rate: 65 P: [place]: QRS: -58 QRSD: 130 T: 175 QT: 414 QTc: 431 Interpretive Statements Afib/flut and V-paced complexes No further analysis attempted due to paced rhythm Compared to ECG 09/14/2019 20:54:37 paced beats now noted Electronically Signed On 11-09-2020 11:01:39 CDT by Melvin Carrillo [email or web address] <ELECTRONICALLY SIGNED> By: Melvin Carrillo MD, [facility] 11/09/20 1101 1550 1550 Melvin Carrillo MD, [facility] /EPI
[2020-11-09 12:00] VITALS: BP 126/77
--- NOTE | 2020-11-09 12:05 | NUR ---
pt indicated she lives at [facility] in independent living. pt has hx with dianns . according to day mathis she and pt's son, candy, are pt's dpoa. per day, pt is not current with hh, but she would like opal/chung to speak with Brittany botello to discussion hh with pt as pat is the one who arranges pt's schedule. pt uses walker for ambulation, and is not a good historian/day. pt's pcp is dr armen walton @ [phone]. his SIDE SHOW ENTERTAINER is Diane.
--- NOTE | 2020-11-09 12:44 | NUR ---
[facility] Bedside Note by NTN: Referral received after rounds from [facility] case manager. Met with patient who talked about haveing HH recently that was what brought her to the hospital. She appeared with memory issues and could not name the provider. Call to her son revealed that she is followed at her [facility] by Dr. Owen Meng whose MOLD RELEASE WORKER saw her this week. Son states she has had HH before and yes would like it on dc from hospital. Confirmed geographics and to use his phone number for all communication even when setting up appointments. Left [facility] business card with the patient. Informed Chantel of all that was done.
[2020-11-09 14:01] LABS: ABSOLUTE MONOCYTES 0.3 thou/uL (0.0-1.2); ABSOLUTE NEUTROPHILS 4.7 thou/uL (1.6-8.1); BASOPHILS 0.6 %; EOSINOPHILS 0.8 %; HEMATOCRIT 31.1 % (37.0-47.0); HEMOGLOBIN 9.6 gm/dL (12.0-15.0); MCH 21.9 pg (26.0-34.0); MCHC 30.7 g/dL (28.0-37.0); MCV 71.1 fL (80.0-100.0); MONOCYTES 4.2 %; MPV 7.5 fl. (7.2-11.1); NUCLEATED RBCS 0 /100WBC; PLATELET COUNT* 352 thou/uL (150-400); POLYS 77.4 %; RBC 4.37 mil/uL (4.20-5.00); RDW-CV 18.6 % (10.5-14.5); WBC 6.1 thou/uL (4.0-11.0)
[2020-11-09 14:06] LABS: POTASSIUM 3.8 mmol/L (3.5-5.1)
[2020-11-09 14:45] LABS: PLATELET ESTIMATE ADEQUATE
[2020-11-09 14:46] LABS: ANISOCYTOSIS 1+
--- NOTE | 2020-11-09 15:35 | 2DMMODE ---
[place] [address] 2 D/M-MODE ECHOCARDIOGRAM Name: DIONISIOMATT Room: [address] ADM IN [facility]#: [id number] Admission: 11/08/20 Attend Phys: Enzo Hart Discharge: Date of : 30 Date of Service: 11/09/20 1534 Report #: [id number] THIS REPORT FOR: cc: FAM - No family physician/PCP FAM - No family physician/PCP Javier Bynum MD [facility] ~ APPROVED REPORT Study performed: 11/09/2020 13:55:07 EXAM: Comprehensive 2D, Doppler, and color-flow Echocardiogram Patient Location: In-Patient Room #: [facility] Status: routine BSA: 1.56 HR: 60 bpm BP: 126/77 mmHg Rhythm: Atrial Fibrillation Other Information Study Quality: Good Indications Atrial Fibrillation EDEMA, DIZZINESS 2D Dimensions IVSd: 10.86 (7-11mm) LVOT Diam: 19.50 (18-24mm) LVDd: 39.20 mm PWd: 9.92 (7-11mm) Ascending Ao: 34.19 (22-36mm) LVDs: 21.09 (25-40mm) Aortic Root: 29.34 mm Volumes Left Atrial Volume (Systole) LA ESV Index: 23.70 mL/m2 Aortic Valve AoV Peak Willem.: 1.61 m/s AO Peak Gr.: 10.41 mmHg LVOT Max P.27 mmHg AO Mean Gr.: 5.98 mmHg LVOT Mean P.80 mmHg LVOT Max V: 0.90 m/s AO V2 VTI: 30.54 cm LVOT Mean V: 0.63 m/s LUZ MARINA (VTI): 1.84 cm2 LVOT V1 VTI: 18.79 [place] [address] 2 D/M-MODE ECHOCARDIOGRAM Name: MATT NICHOLE Room: [address] IN [facility]#: [id number] Admission: 11/08/20 Attend Phys: Enzo Hart Discharge: Date of : 30 Date of Service: 11/09/20 1534 Report #: [id number] Mitral Valve MV Decel. Time: 146.04 ms MV PHT: 42.35 ms MVA (PHT): 5.19 cm2 TDI Medial E' Willem.: 0.07 m/s Lateral E' Willem.: 0.11 m/s Pulmonary Valve PV Peak Willem.: 0.97 m/s PV Peak Gr.: 3.78 mmHg Tricuspid Valve RAP Estimate: 5.00 mmHg TR Peak Gr.: 33.37 mmHg RVSP: 38.00 mmHg PA Pressure: 38.00 mmHg Left Ventricle The left ventricle is normal size. There is left ventricular systolic dyssynergy consistent with paced rhythm. Mild concentric left ventricular hypertrophy. Left ventricular systolic function is normal. LVEF is 60-65%. This study is not technically sufficient to allow evaluation of the LV diastolic function due to atrial fibrillation. Right Ventricle The right ventricle is normal size. The right ventricular systolic function is normal. Pacemaker lead is present in the right ventricle. Atria Left atrium is mildly dilated. Right atrium is mildly dilated. Aortic Valve Moderate aortic valve sclerosis. Trace aortic regurgitation. Mild aortic stenosis. Mitral Valve The mitral valve is normal in structure. Mild mitral regurgitation. No evidence of mitral valve stenosis. Tricuspid Valve The tricuspid valve is normal in structure. Mild tricuspid regurgitation. Mild pulmonary hypertension. The RVSP is 35-40 [place] [address] 2 D/M-MODE ECHOCARDIOGRAM Name: MATT NICHOLE Room: [address]#: [id number] Admission: 11/08/20 Attend Phys: Enzo Hart Discharge: Date of : 30 Date of Service: 11/09/20 1534 Report #: [id number] Pulmonic Valve The pulmonary valve is normal in structure. There is no pulmonic valvular regurgitation. Great Vessels The aortic root is normal in size. IVC is normal in size and collapses >50% with inspiration. Pericardium There is no pericardial effusion. <Conclusion> The left ventricle is normal size. Mild concentric left ventricular hypertrophy. Left ventricular systolic function is normal. LVEF is 60-65%. There is left ventricular systolic dyssynergy consistent with paced rhythm. Pacemaker lead is present in the right ventricle. Left atrium is mildly dilated. Right atrium is mildly dilated. Moderate aortic valve sclerosis. Trace aortic regurgitation. Mild aortic stenosis. Mild mitral regurgitation. Mild tricuspid regurgitation. Mild pulmonary hypertension. The RVSP is 35-40 mmHg. IVC is normal in size and collapses >50% with inspiration. <ELECTRONICALLY SIGNED> By: Javier Bynum MD, FACC 11/09/20 1534 1534 1534 Javier Bynum MD, FACC /INF
[2020-11-09 16:00] VITALS: BP 134/59
--- NOTE | 2020-11-09 16:41 | NUR ---
MANAGER PUBLIC TRACKING WITH NO CHANGES. IV MULTI VIT FLUIDS INFUSING PER ORDERS. NO COMPLAINTS OF DIZZINESS TO NURSING, TOLERATING DIET. ANXIOUS AT TIMES, REASSURANCE GIVEN. ROOM AIR, NO SIGN OF RESPIRATORY DISTRESS. CALL LIGHT WITHIN REACH. WILL CONTINUE WITH PLAN OF CARE.
[2020-11-09 19:45] VITALS: BP 162/72
[2020-11-10] VITALS: BP 153/60
[2020-11-10 04:00] VITALS: BP 148/63
[2020-11-10 04:26] LABS: ABSOLUTE BASOPHILS 0.1 thou/uL (0.0-0.2); ABSOLUTE EOSINOPHILS 0.1 thou/uL (0.0-0.7); ABSOLUTE MONOCYTES 0.6 thou/uL (0.0-1.2); ABSOLUTE NEUTROPHILS 4.2 thou/uL (1.6-8.1); EOSINOPHILS 1.8 %; HEMATOCRIT 26.3 % (37.0-47.0); HEMOGLOBIN 8.3 gm/dL (12.0-15.0); LYMPHOCYTES 28.4 %; MCH 22.2 pg (26.0-34.0); MCHC 31.5 g/dL (28.0-37.0); MCV 70.5 fL (80.0-100.0); MONOCYTES 8.5 %; NUCLEATED RBCS 0 /100WBC; PLATELET COUNT* 287 thou/uL (150-400); POLYS 60.3 %; RBC 3.73 mil/uL (4.20-5.00); RDW-CV 18.6 % (10.5-14.5); WBC 6.9 thou/uL (4.0-11.0)
[2020-11-10 04:36] LABS: CALCIUM 8.3 mg/dL (8.5-10.1); CREATININE 0.8 mg/dL (0.6-1.3); POTASSIUM 3.8 mmol/L (3.5-5.1)
[2020-11-10 06:18] LABS: ANISOCYTOSIS 1+; HYPOCHROMASIA 2+; MICROCYTES 2+; POIKILOCYTOSIS 1+
[2020-11-10 06:19] LABS: POLYCHROMASIA 1+
--- NOTE | 2020-11-10 06:54 | NUR ---
PT SLEPT MOST OF SHIFT. ASSESSMENT DOCUMENTED. MEDS GIVEN PER E-JUL. IV PATENT. FLUIDS FINISHED INFUSING. NO REPORTS OF PAIN. FALL PRECAUTIONS IN PLACE. PT ABLE TO MAKE NEEDS KNONW. WILL CONTINUE WITH PLAN OF CARE.
[2020-11-10 07:50] VITALS: BP 165/77
[2020-11-10 12:45] VITALS: BP 156/82
--- NOTE | 2020-11-10 15:00 | NUR ---
Anticipate dc to home tomorrow. Fax dc orders to [facility] at [phone]
[2020-11-10 16:52] VITALS: BP 153/53
--- NOTE | 2020-11-10 18:44 | NUR ---
PT A&OX4 VSS. PT BLOOD GLUCOSE LOW THIS AM (56), PT PROVIDED JUICE AND SNACKS BEFORE BREAKFAST ARRIVED. GLUCOSE RECHECKED AND FOUND TO BE 82. PT SON UPDATED BY PHONE X2 THIS SHIFT. ACCUCHECKS, INSULIN ADMINISTERED DIRECTED. PT LIKELY TO DC TOMORROW. PT UP SBA TO BSC. PT REMAINS ON ROOM AIR. IV TO RAC PATENT, MEDS INFUSING ORDERED. PT RESTS IN ROOM WITH CALL LIGHT IN REACH, WILL CONTINUE TO MONITOR
[2020-11-10 20:45] VITALS: BP 141/58
--- NOTE | 2020-11-11 04:32 | NUR ---
PT TRANSFERRED FROM TELE. A&O X 4. VSS ON RA. MEDS GIVEN ORDERED. NO C/O PAIN. UP TO BSC WITH SBA. ORANGE JUICE GIVEN X1 FOR LOW BG. PT SLEPT MOST OF THE NIGHT. CALL LIGHT WITHIN REACH. WILL CONTINUE TO MONITOR.
[2020-11-11 08:10] VITALS: BP 171/72
[2020-11-11] MEDS ORDERED: METFORMIN HCL500 MG PO (09:26)
[2020-11-11 13:55] VITALS: BP 171/72
--- NOTE | 2020-11-11 15:07 | NUR ---
PATIENT GIVEN DISCHARGE INSTRUCTIONS AND MEDICATIONS REVIEWED. IV REMOVED. [facility] STAFF TO PICK PATIENT UP AT APPROX. 1500. AND ARRIVED A FEW MINUTES EARLY. PATIENT DENIES ANY PAIN/QUESTIONS/CONCERNS PRIOR TO DISCHARGE. PATIENT LEFT UNIT VIA W/C WITH PERSONAL BELONGINGS ACCOMPANIED BY NURSING STAFF AT APPROX. 1452.
[2020-11-11 15:09] VITALS: BP 171/72
--- NOTE | 2020-11-12 09:15 | NUR ---
PLEASE NOTE PT WAS DISCHARGED FROM HOSPITAL BEFORE P.T. EVAL AND TREAT COULD BE INITIATED.
== END 2020-11-11 14:52 | disposition home health service (06) | DRG 683 ==
LOC: M.ERS 15:41 → M.TBA-ER 17:01 → M.2W 17:01 → M.ORTHSURG 11-10 19:19
PROVIDERS: Family Medicine; ADMIT Internal Medicine; ATTEND Internal Medicine
DX: N17.9 Acute kidney failure, unspecified (principal); E44.1 Mild protein-calorie malnutrition; Z68.1 Body mass index [BMI] 19.9 or less, adult; I48.91 Unspecified atrial fibrillation; E86.0 Dehydration; E11.65 Type 2 diabetes mellitus with hyperglycemia; D64.9 Anemia, unspecified; E11.649 Type 2 diabetes mellitus with hypoglycemia without coma; Z96.641 Presence of right artificial hip joint; Z20.822 Contact with and (suspected) exposure to COVID-19; Z90.49 Acquired absence of other specified parts of digestive tract; Z90.710 Acquired absence of both cervix and uterus; Z95.0 Presence of cardiac pacemaker; Z79.01 Long term (current) use of anticoagulants; Z79.899 Other long term (current) drug therapy; Z88.5 Allergy status to narcotic agent; Z88.8 Allergy status to other drugs, medicaments and biological substances; Z79.4 Long term (current) use of insulin